=== PATIENT | female | born 1960 | race Caucasian/White ===

== ENCOUNTER → 2022-01-06 11:39 | Outpatient (BNVA) | payer OTHER, SELFPAY | PROVIDERS: PCP Internal Medicine; Referring Provider Internal Medicine; Visit Provider Student in an Organized Health Care Education/Training Program | DX: M17.0 Bilateral primary osteoarthritis of knee (principal); M79.7 Fibromyalgia; E66.01 Morbid (severe) obesity due to excess calories; Z68.42 Body mass index [BMI] 45.0-49.9, adult | CPT/HCPCS: 99212 ==

== ENCOUNTER 2022-01-30 | Outpatient (REF) | payer OTHER, SELFPAY ==
--- NOTE | ~2022-01-30 | XR_ITS ---
EXAMINATION: XR KNEE, BILATERAL AP STANDING XR KNEE, RIGHT XR KNEE, LEFT CLINICAL INFORMATION: Pain in unspecified knee. COMPARISON: None. TECHNIQUE: AP bilateral knee standing 1 view. 2 views each knee. FINDINGS: AP Bilateral Knee Standing: There is genu varus deformity of both knee joints slightly greater on the right. There is severe loss of medial compartment joint space both knees with periarticular spurring right knee. No bony erosive changes or loose body seen. No joint effusion. No fracture. Right Knee: There is mild suprapatellar joint effusion with minimal loss of patellofemoral compartment joint space with no bony erosive changes or loose body seen. Left Knee: There is moderate loss of patellofemoral compartment joint space with inferior patellar spurring. No abnormal suprapatellar joint effusion seen. No bony erosive changes. No visible acute fracture or dislocation. XR/XR knee RT 2V IMPRESSION: 1. Severe degenerative changes medial compartment both knees with periarticular spurring. No visible acute fracture or dislocation seen. 2. There is mild suprapatellar joint effusion right knee. 3. There is moderate loss of patellofemoral compartment joint space with inferior patellar spurring left knee. 4. There is genu varus deformity of both knee joints slightly greater on the right.
--- NOTE | ~2022-01-30 | XR_ITS ---
EXAMINATION: XR KNEE, BILATERAL AP STANDING XR KNEE, RIGHT XR KNEE, LEFT CLINICAL INFORMATION: Pain in unspecified knee. COMPARISON: None. TECHNIQUE: AP bilateral knee standing 1 view. 2 views each knee. FINDINGS: AP Bilateral Knee Standing: There is genu varus deformity of both knee joints slightly greater on the right. There is severe loss of medial compartment joint space both knees with periarticular spurring right knee. No bony erosive changes or loose body seen. No joint effusion. No fracture. Right Knee: There is mild suprapatellar joint effusion with minimal loss of patellofemoral compartment joint space with no bony erosive changes or loose body seen. Left Knee: There is moderate loss of patellofemoral compartment joint space with inferior patellar spurring. No abnormal suprapatellar joint effusion seen. No bony erosive changes. No visible acute fracture or dislocation. XR/XR knee standing BI IMPRESSION: 1. Severe degenerative changes medial compartment both knees with periarticular spurring. No visible acute fracture or dislocation seen. 2. There is mild suprapatellar joint effusion right knee. 3. There is moderate loss of patellofemoral compartment joint space with inferior patellar spurring left knee. 4. There is genu varus deformity of both knee joints slightly greater on the right.
--- NOTE | ~2022-01-30 | XR_ITS ---
EXAMINATION: XR KNEE, BILATERAL AP STANDING XR KNEE, RIGHT XR KNEE, LEFT CLINICAL INFORMATION: Pain in unspecified knee. COMPARISON: None. TECHNIQUE: AP bilateral knee standing 1 view. 2 views each knee. FINDINGS: AP Bilateral Knee Standing: There is genu varus deformity of both knee joints slightly greater on the right. There is severe loss of medial compartment joint space both knees with periarticular spurring right knee. No bony erosive changes or loose body seen. No joint effusion. No fracture. Right Knee: There is mild suprapatellar joint effusion with minimal loss of patellofemoral compartment joint space with no bony erosive changes or loose body seen. Left Knee: There is moderate loss of patellofemoral compartment joint space with inferior patellar spurring. No abnormal suprapatellar joint effusion seen. No bony erosive changes. No visible acute fracture or dislocation. XR/XR knee LT 2V IMPRESSION: 1. Severe degenerative changes medial compartment both knees with periarticular spurring. No visible acute fracture or dislocation seen. 2. There is mild suprapatellar joint effusion right knee. 3. There is moderate loss of patellofemoral compartment joint space with inferior patellar spurring left knee. 4. There is genu varus deformity of both knee joints slightly greater on the right.
== END 2022-01-30 00:01 | disposition home or self-care (01) ==
LOC: HO.HOSX
PROVIDERS: Visit Provider Orthopaedic Surgery
DX: M17.0 Bilateral primary osteoarthritis of knee (principal); E66.01 Morbid (severe) obesity due to excess calories; K74.60 Unspecified cirrhosis of liver; J45.909 Unspecified asthma, uncomplicated
CPT/HCPCS: 73560; 73565; 99202

== ENCOUNTER → 2022-02-13 10:02 | Outpatient (BNVA) | payer OTHER, SELFPAY | PROVIDERS: PCP Internal Medicine; Visit Provider Orthopaedic Surgery | DX: M17.0 Bilateral primary osteoarthritis of knee (principal); E66.01 Morbid (severe) obesity due to excess calories; K74.60 Unspecified cirrhosis of liver; J45.909 Unspecified asthma, uncomplicated; Z68.41 Body mass index [BMI] 40.0-44.9, adult | CPT/HCPCS: 99212 ==

== ENCOUNTER → 2022-03-16 09:51 | Outpatient (BNVA) | payer OTHER, SELFPAY | PROVIDERS: PCP Internal Medicine; Visit Provider Orthopaedic Surgery | DX: M17.0 Bilateral primary osteoarthritis of knee (principal); K74.60 Unspecified cirrhosis of liver; J45.909 Unspecified asthma, uncomplicated; E66.01 Morbid (severe) obesity due to excess calories; Z68.41 Body mass index [BMI] 40.0-44.9, adult | CPT/HCPCS: 99212 ==

== ENCOUNTER → 2022-03-20 09:51 | Outpatient (BNVA) | payer OTHER, SELFPAY | PROVIDERS: PCP Internal Medicine; Referring Provider Internal Medicine; Visit Provider Physician Assistant Surgical | DX: Z13.89 Encounter for screening for other disorder (principal) ==

== ENCOUNTER → 2022-04-11 13:15 | Outpatient (BNVA) | payer OTHER, SELFPAY | PROVIDERS: PCP Internal Medicine; Visit Provider Physician Assistant Surgical | DX: E66.01 Morbid (severe) obesity due to excess calories (principal); Z68.41 Body mass index [BMI] 40.0-44.9, adult | CPT/HCPCS: 99202 ==

== ENCOUNTER → 2022-05-25 09:52 | Outpatient (BNVA) | payer OTHER, SELFPAY | PROVIDERS: PCP Internal Medicine; Visit Provider Dietitian, Registered | DX: E66.01 Morbid (severe) obesity due to excess calories (principal); Z68.41 Body mass index [BMI] 40.0-44.9, adult | CPT/HCPCS: 97802 ==

== ENCOUNTER 2022-06-02 13:00 | Outpatient (RCR) | payer MEDICAID, OTHER, SELFPAY ==
[2022-03-02 12:14] VITALS: BP 130/62
--- NOTE | 2022-03-02 12:55 | MHC.PT.EP ---
[facility] [place] Office [place] Office [place] Office [address] Mariluz Black [address] [phone] F: [phone] F: [phone] F: [phone] F: [phone] Physical Therapy Plan of Care Date of Evaluation: Date of Surgery: N/A Diagnosis: bilateral osteoarthritis of knees (RC) Assessment: pt is a 61 y/o female presenting to physical therapy w/ referring diagnosis of bilateral osteoarthritis of knees. pt does present w/ perseveration and poor health literacy. Impairments include pain, decreased range of motion, decreased strength, impaired functional mobility, impaired postural awareness, and altered ambulation mechanics. pt is a good candidate for skilled PT due to age, potential remediation of impairments, typyical disease/condition progression and prognosis, comorbidities, and motivation. pt would benefit from skilled PT intervention to provide a tailored strengthening and stretching exercise program, functional training, gait training, postural re-training, neuromuscular re-education, modalities as needed for pain, equipment safety demonstration. Frequency and Duration: The patient will be seen 2x/wk for 3 wks Short Term Goals: pt will be I w/ HEP to promote self-management of condition. pt will improve B knee flexion by 10 degrees to promote ease in transfers. Nursing Home Goals: pt will improve B knee extension strength to at least 4/5 to promote ease in ambulation w/ LRAD. pt will report a statistically significant improvement in self-reported outcome measure, LEFI, to promote improved QOL. Treatment Plan: Modalities to reduce pain, spasms and effusion. Manual therapy to restore motion and function. Therapeutic exercise to improve strength and flexibility. Neuromuscular re-education for posture and balance. Therapeutic activities to return to functional activities of daily living. Electronically signed by: Latoya Martinez PT, DPT Please sign and return to therapist. Thank you for your referral.
--- NOTE | 2022-06-05 12:39 | MHC.PT.DC ---
[facility] [place] Office [place] Office [place] Office [address] Mariluz Black 140 [facility] [phone] F: [phone] F: [phone] F: [phone] F: [phone] Physical Therapy Discharge Report Diagnosis: bilateral osteoarthritis of knees (RC) Date of Surgery: N/A Date of Evaluation: 03/02/22 Date of Discharge: 06/05/22 Treatments to Date: 14 Cancellations to Date: 11 No Shows to Date: 0 Discharge Status: Recommend MD Follow-up Discharge Summary: The patient has attended a total of 14 visits with little to no change in her pain symptoms. She continues to have poor tolerance of weightbearing and uses a rollator for ambulation. She had fair-poor attendance and follow-through with recommendations from physical therapy. She is being discharged from physical therapy with the recommendation to continue with her home exercise program to continue to build strength and range of motion. She also was instructed by the orthopedic surgeon to lose weight before they will consider surgery. She is discharged at this time. Electronically signed by: Latoya Martinez PT, DPT Please sign and return to therapist. Thank you for your referral.
== END 2022-06-05 12:39 | disposition home or self-care (01) ==
LOC: HO.PT 13:00
PROVIDERS: PCP Internal Medicine; Visit Provider Orthopaedic Surgery
DX: M17.0 Bilateral primary osteoarthritis of knee (principal); R53.81 Other malaise
CPT/HCPCS: 97110; 97140; 97162; 97530

== ENCOUNTER → 2022-06-06 12:55 | Outpatient (BNVA) | payer OTHER, SELFPAY | PROVIDERS: PCP Internal Medicine; Visit Provider Physician Assistant ==

== ENCOUNTER → 2022-06-09 11:51 | Outpatient (BNVA) | payer MEDICAID, SELFPAY | PROVIDERS: PCP Internal Medicine; Visit Provider Physician Assistant Surgical | DX: E66.01 Morbid (severe) obesity due to excess calories (principal); Z68.41 Body mass index [BMI] 40.0-44.9, adult | CPT/HCPCS: 99212 ==

== ENCOUNTER → 2022-07-14 11:27 | Outpatient (BNVA) | payer MEDICAID, SELFPAY | PROVIDERS: PCP Internal Medicine; Referring Provider Internal Medicine; Visit Provider Physician Assistant Surgical | DX: E66.01 Morbid (severe) obesity due to excess calories (principal); K74.60 Unspecified cirrhosis of liver; J45.909 Unspecified asthma, uncomplicated; M17.0 Bilateral primary osteoarthritis of knee; M79.7 Fibromyalgia; Z68.41 Body mass index [BMI] 40.0-44.9, adult | CPT/HCPCS: 99212 ==

== ENCOUNTER 2022-08-18 09:02 | Outpatient (REF) | payer MEDICAID, SELFPAY ==
[2022-08-18 10:29] LABS: MANUAL DIFF FLAG NO
[2022-08-18 10:46] LABS: Basophils Absolute Auto 0.1 X10*3/uL (0.0-0.2); Basophils Percent Auto 0.8 % (0-2); Eosinophils Absolute Auto 0.1 X10*3/uL (0.0-0.4); Eosinophils Percent Auto 1.6 % (0-4); Hematocrit 47.4 % (37.0-47.0); Hemoglobin 15.3 g/dl (12.0-16.0); Imm Gran Abs Auto 0.02 X10*3/uL (0.00-0.03); Imm Gran Pct Auto 0.3 % (0.0-0.4); Lymphocytes Absolute Auto 2.8 X10*3/uL (1.2-4.9); Lymphocytes Percent Auto 36.9 % (20-40); Mean Corpuscular HGB Conc 32.3 g/dl (31.0-35.0); Mean Corpuscular Hemoglobin 29.7 pg (27.0-33.0); Mean Corpuscular Volume 91.9 fL (80.0-98.0); Mean Platelet Volume 12.2 fL (9.4-12.3); Monocytes Absolute Auto 0.7 X10*3/uL (0.1-1.2); Monocytes Percent Auto 9.3 % (2-11); Neutrophils Absolute Auto 3.8 x10*3/uL (2.0-8.3); Neutrophils Percent Auto 51.1 % (45-73); Platelet Count 152 X10*3/uL (160-400); Red Blood Count 5.16 X10*6/uL (4.20-5.50); Red Cell Distribution Width 13.6 % (11.0-16.0); White Blood Count 7.5 X10*3/uL (4.8-10.8)
[2022-08-18 10:57] LABS: Estimated Average Glucose 103 mg/dL; Hemoglobin A1c % 5.2 %
[2022-08-18 12:49] LABS: Ferritin 173 ng/mL (10-250); Insulin 31 uU/mL (2-29); TSH reflex Free T4 1.28 uIU/mL (0.32-4.0)
[2022-08-18 13:08] LABS: Alanine Aminotransferase 27 U/L (0-31); Albumin Level 3.8 g/dL (3.5-5.0); Alkaline Phosphatase 119 U/L (39-117); Anion Gap 12 (12-20); Aspartate Amino Transferase 26 U/L (5-31); Bilirubin Total 0.8 mg/dL (0.0-1.0); Blood Urea Nitrogen 9 mg/dL (9-16); C Reactive Protein 0.39 mg/dL (< or = 0.50); Calcium 9.2 mg/dL (8.4-10.2); Carbon Dioxide 25 mmol/L (22-29); Chloride 109 mmol/L (96-108); Cholesterol 209 mg/dL; Estimated Glomerular Filt Rate > 60; Glucose Random 92 mg/dL (60-115); HDL Cholesterol 67 mg/dL; Iron 152 mcg/dL (30-160); LDL Cholesterol Calculated 124 mg/dl; Percent Iron Saturation 43 % (15-50); Sodium 142 mmol/L (135-145); Total Iron Binding Capacity 351 mcg/dL (228-428); Total Protein 8.1 g/dL (6.5-8.0); Triglycerides 91 mg/dL; Unsaturated Iron Binding 199 ug/dL
[2022-08-18 13:10] LABS: Folate 14.3 ng/mL (> or = 4.0); Vitamin B12 351 pg/mL (200-900)
[2022-08-21 14:32] LABS: Calcium (PTHI) 9.2 mg/dL (8.6-10.4); PTHI 86 pg/mL (16-77)
[2022-08-22 12:33] LABS: Zinc 66 mcg/dL (60-130)
[2022-08-24 12:18] LABS: Vitamin B1 8 nmol/L (8-30)
[2022-08-24 15:54] LABS: Vitamin A 31 mcg/dL (38-98)
== END 2022-08-18 09:03 | disposition home or self-care (01) ==
LOC: HO.LAB 09:02
PROVIDERS: Visit Provider Physician Assistant Surgical
DX: E66.01 Morbid (severe) obesity due to excess calories (principal); M79.7 Fibromyalgia; K74.60 Unspecified cirrhosis of liver; J45.909 Unspecified asthma, uncomplicated; M17.0 Bilateral primary osteoarthritis of knee
CPT/HCPCS: 36415; 80053; 80061; 82306; 82607; 82728; 82746; 83036; 83525; 83540; 83970; 84425; 84443; 84590; 84630; 85025; 86140; 99212

== ENCOUNTER 2022-11-14 10:49 | Outpatient (AMB) | payer MEDICAID, SELFPAY ==
--- NOTE | 2022-11-14 10:52 | A.OFFVIS_ITS ---
Intake VS Expanded 11/14/22 10:56 Height 4 ft 11 in Weight 214 lb 3.2 oz BMI 43.3 BP 135/60 Blood Pressure Location Rt brachial Blood Pressure Position Sitting Respiratory Rate 16 Pulse 96 Pulse Source Pulse Oximeter Temp 98.0 F Temperature Source Temporal Artery Scan Pulse Oximetry 97 Oxygen Delivery Method Room Air Body Fat 92.8 Body Fat Percentage 43.4 Free Fat Mass 121.2 Muscle Mass 115.0 Visceral Mass 15.0 Water Mass 86.0 BMR 1,679 Intake Visit Reasons: MWL follow up Allergies gabapentin Allergy (Intermediate, Verified 11/14/22 10:55) Swelling Medication List - Last Reconciled 11/14/22 by ASAD Patino albuterol sulfate 90 mcg/actuation (Ventolin HFA) 2 puffs inhalation QID PRN aripiprazole 10 mg PO QAM carvedilol 3.125 mg PO BID cholecalciferol (vitamin D3) 25 mcg PO DAILY clonazepam 0.5 mg PO BID PRN duloxetine 60 mg PO QAM fluticasone propion-salmeterol 500-50 mcg/dose (Advair Diskus) 1 ea inhalation BID hydrochlorothiazide 12.5 mg PO DAILY montelukast 5 mg PO BID [shower chair As directed] tiotropium bromide 1.25 mcg/actuation (Spiriva Respimat) 2 puffs inhalation DAILY tolterodine 2 mg PO BID vitamin A palmitate 10,000 units PO DAILY [walker As directed] walker with seart attachment HPI HPI Comments History of Present Illness Details Pt presents in followup for MWL. Starting weight: 218 Weight at last visit: 209.8 Total weight change: -3.6 Pt reports a bad upper respiratory infection, did not adhere to meal plan for more than 2 weeks, had to be on prednisone, last dose about 3 weeks ago. She continues to smoke but reports she has cut down. Meal plan: 2 eggs or yogurt or cottage cheese 12-1pm Premier 2 scoops in 8oz unsweeten ed almond milk 3pm protein bar - celebrate or fitcrunch dinner meat, vegetables, salad doing well with fluid intake dealt with cravings this month, eliminated rice has goal of knee surgery, supposed to lose 25-30lbs before can have done Exercise: doing Sit and Be Fit videos- 3x week but not lately due to illness PT 2x/week? [facility] Medical History (Updated 01/30/22 @ 11:16 by Kumar Staley) Drug-seeking behavior Depression Anxiety Carpal tunnel syndrome Fibromyalgia Hepatitis C Sleep apnea Osteoarthritis Cirrhosis of liver Surgical History History of carpal tunnel release Abnormal colonoscopy Family History Mother Osteoporosis Father Rheumatoid arthritis Other History of lupus Social History Household Members: None Alcohol intake: current Alcohol intake frequency: does not drink Patient Tobacco Use Status: Current everyday Tobacco user Current occupational status: disabled Physical Exam Vital Signs: Last Vital Signs Temp 98.0 F 11/14/22 10:56 Pulse 96 11/14/22 10:56 Resp 16 11/14/22 10:56 BP 135/60 11/14/22 10:56 Pulse Ox 97 11/14/22 10:56 Oxygen Delivery Method Room Air 11/14/22 10:56 BMI result Body Mass Index 43.3 Assessment & Plan Assessment & Plan (1) Obesity, morbid, BMI 40.0-49.9: Code(s): E66.01 - Morbid (severe) obesity due to excess calories (2) Bilateral primary osteoarthritis of knee: Code(s): M17.0 - Bilateral primary osteoarthritis of knee (3) Fibromyalgia: Code(s): M79.7 - Fibromyalgia (4) Liver cirrhosis: Code(s): K74.60 - Unspecified cirrhosis of liver (5) Asthma: Code(s): J45.909 - Unspecified asthma, uncomplicated Plan Pt would like to transition to surgical weight loss. We discussed that she needs to adhere to the program strictly and quit smoking. We also discussed her history of liver cirrhosis and the possibility that depending on US results she may not qualify for safe surgery. She feels motivated to follow through with the program and follow it. This is a 62 yo female who will start our SWL program to prepare for bariatric surgery.? Blood work previously completed. H pylori , CXR, ECG, Abd US and UGI have been ordered. She is being scheduled for RD and BH initial consultations. She will start SWL classes and watch at least # 1 and # 2 before her next appointment. ? Adequate sleep of 7-8 hours per night discussed ?? Pt will purchase body composition analyzer scale (Kate sainz recommended) and check weight weekly. The best time to do this is first thing in the morning after going to the bathroom. 1. Nutritional counseling. 7-9am Premier Protein shake: 1 scoop in 8oz low fat unsweetened almond milk each 11am-1pm Protein bar (Celebrate or FitCrunch brand) 2-4pm Premier Protein shake: 1 scoop in 8oz low fat unsweetened almond milk each 5 or 6pm dinner: 7 forks protein, 7 forks salad/vegetables 7-9pm protein bar or [place] yogurt Meal to include lean meat (beef, fish, pork, turkey, chicken), cooked vegetables or a salad with olive oil and/or fruits (berries, pears, apples, kiwi). Avoid salt, breads, potatoes, rice, pasta, desserts.? Try to drink 64 oz of water daily and avoid soda and juices. ?2. Each shake would be drunk slowly, like coffee in a period of 2 hours. ?3. Cut each bar in 4 pieces and eat each piece in 30 min? to make each bar last 2 hours. ?4. I emphasized the importance of measuring accurately the food portion and measure it carefully when serving the food on the plate ?5. The meal portions include 7 full-size forks of meat and 7 full-size forks of salad. You always eat the meat portion but you can replace up to half of the forks of salad/vegetables with rice, potatoes or pasta, or a fruit? if you like. The less you do it the better weight loss will be. ?6. One full-size fork is what can be scooped on the fork without falling aside and not what can be bit with the fork. Use regular forks like those you find in a typical restaurant. ?7.? Please send me weight measurements as soon as possible and then once a week. Always include your diet and exercise plan. Alternatively come weekly at the office for weight checks and send me the measurements. ?8. Goal of 2000 calories burned or more weekly.? Tracking calories is essential. 9. Complete one Sit and Be Fit video DAILY. Alternatively start walking outside daily, tracking calories with a goal of 300 calories per day, daily. You can download the aranza Music Messenger (MM) which can track you time, distance and calories while walking outside.? You press start in the aranza when you start and then stop when you are finished.?? 10.? It is important to avoid and for at least 18 months postoperatively and it has been discussed at the information session 11. Goal is to lose at least 1.5-2lbs per week 12. Goal to lose 10% of your weight before surgery, which is about 21 lbs. Ultimate weight goal: 197 lbs before surgery Patient is morbidly obese and is not considered stable at this time. I spent a total of 45 minutes reviewing/updating records, examining the patient and counseling the patient on weight management as detailed above. Orders: Orders ECG 12 lead EKG Today E66.01 - Morbid (severe) obesity due to excess calories FL upper GI w air Today E66.01 - Morbid (severe) obesity due to excess calories H Pylori Breath Test Today E66.01 - Morbid (severe) obesity due to excess calories US abdomen comp w elastography Today E66.01 - Morbid (severe) obesity due to excess calories XR chest 2V Today E66.01 - Morbid (severe) obesity due to excess calories Referrals Nutrition/Dietitian Referral E66.01 - Morbid (severe) obesity due to excess calories Behavioral Health Referral E66.01 - Morbid (severe) obesity due to excess calories Coding Level of Care Code Est Pt Level 5 (32966) Diagnoses Obesity, morbid, BMI 40.0-49.9 E66.01 Bilateral primary osteoarthritis of knee M17.0 Fibromyalgia M79.7 Liver cirrhosis K74.60 Asthma J45.909
[2022-11-14 10:56] VITALS: BP 135/60; PULSE 96; RESP 16; TEMP 36.7; O2SAT 97; BMI 43.3
== END 2022-11-14 11:56 | disposition home or self-care (01) ==
PROVIDERS: PCP Internal Medicine; Visit Provider Physician Assistant Surgical
DX: E66.01 Morbid (severe) obesity due to excess calories (principal); Z68.41 Body mass index [BMI] 40.0-44.9, adult; K74.60 Unspecified cirrhosis of liver; J45.909 Unspecified asthma, uncomplicated
CPT/HCPCS: 99215

== ENCOUNTER → 2022-11-14 10:49 | Outpatient (BNVA) | payer MEDICAID, SELFPAY | PROVIDERS: PCP Internal Medicine; Visit Provider Physician Assistant Surgical | DX: E66.01 Morbid (severe) obesity due to excess calories (principal); K74.60 Unspecified cirrhosis of liver; M17.0 Bilateral primary osteoarthritis of knee; M79.7 Fibromyalgia; J45.909 Unspecified asthma, uncomplicated; Z68.41 Body mass index [BMI] 40.0-44.9, adult | CPT/HCPCS: 99212 ==

== ENCOUNTER 2022-12-13 09:37 | Outpatient (AMB) | payer MEDICAID, SELFPAY ==
--- NOTE | 2022-12-13 10:05 | MHC.AMNUTRGE ---
Intake VS Expanded 12/13/22 10:38 Height 4 ft 11 in Weight 211 lb 9.6 oz BMI 42.7 Body Fat % 44.0 Body Fat Mass 93.0 Fat Free Mass 118.4 Visceral Fat Rating 15.0 Body Water % 39.7 Body Water Mass 84.0 Muscle Mass/Score 112.4 Basal Metabolic Rate/Score 1,644 Intake Visit Reasons: (OV) F/U SWL Motion Picture Photographer Required: No Allergies gabapentin Allergy (Intermediate, Verified 11/14/22 10:55) Swelling HPI Nutrition Presentation Details Medical weight loss start date 04/11/2022 but NOW SWL new patient weight 218 end of MWL program weight 209# returned for SWL 214 current weight 211# Reason for consult elevated BMI Diet Assmnt Details 8:30-9am Premier powder 1 scoop with almond milk shake and a egg (occasionally) 12pm shake the same way protein bar - Zone macros dinner: protein and veg, but doesn't measure Snacks on fruit apple, grapes is a little vague about what she is doing Exercise: walking around the house, ParasitX[employer] videos, stretching Dietary counseling reduction Diagnosis Nutrition problem #1 overweight/obesity As related to (etiology) #1 excess energy intake and physical inactivity As evidenced by (sign/symptom) #1 high BMI Monitoring/Goals Nutrition problem monitoring total energy intake, level of knowledge/skill, total PRO intake, total CHO intake, weight and oral fluids Outcome progress not met Learning/Education Readiness to learn good Stages of change action Educational materials provided Yes Most Recent Diabetes Results: Cholesterol 209 mg/dL 08/18/22 HDL Cholesterol 67 mg/dL 08/18/22 Triglycerides 91 mg/dL 08/18/22 Creatinine 0.70 mg/dL (0.5-1.4) 08/18/22 Blood Urea Nitrogen 9 mg/dL (9-16) 08/18/22 Sodium 142 mmol/L (135-145) 08/18/22 Potassium 4.0 mmol/L (3.3-5.1) 08/18/22 Chloride 109 mmol/L (96-108) H 08/18/22 Carbon Dioxide 25 mmol/L (22-29) 08/18/22 Calcium 9.2 mg/dL (8.4-10.2) 08/18/22 AST 26 U/L (5-31) 08/18/22 ALT 27 U/L (0-31) 08/18/22 Total Protein 8.1 g/dL (6.5-8.0) H 08/18/22 Albumin 3.8 g/dL (3.5-5.0) 08/18/22 [facility] Medical History (Updated 01/30/22 @ 11:16 by Kumar Staley) Drug-seeking behavior Depression Anxiety Carpal tunnel syndrome Fibromyalgia Hepatitis C Sleep apnea Osteoarthritis Cirrhosis of liver Surgical History History of carpal tunnel release Abnormal colonoscopy Family History Mother Osteoporosis Father Rheumatoid arthritis Other History of lupus Social History Household Members: None Alcohol intake: current Alcohol intake frequency: does not drink Patient Tobacco Use Status: Current everyday Tobacco user Current occupational status: disabled Assessment & Plan Assessment & Plan (1) Obesity, morbid, BMI 40.0-49.9: Code(s): E66.01 - Morbid (severe) obesity due to excess calories Patient Instructions: continue plan. Nutrition education provided. Showed patient how to access classes. Patient will follow-up with me when completed Coding Level of Care Code Nutr Indiv Subseq (16391) Diagnoses Obesity, morbid, BMI 40.0-49.9 E66.01 Time Spent (min) 30
[2022-12-13 10:38] VITALS: BMI 42.7
== END 2022-12-13 10:48 | disposition home or self-care (01) ==
PROVIDERS: PCP Internal Medicine; Visit Provider Dietitian, Registered
DX: E66.01 Morbid (severe) obesity due to excess calories (principal)

== ENCOUNTER → 2022-12-13 09:37 | Outpatient (BNVA) | payer MEDICAID, SELFPAY | PROVIDERS: PCP Internal Medicine; Visit Provider Dietitian, Registered | DX: E66.01 Morbid (severe) obesity due to excess calories (principal); Z68.41 Body mass index [BMI] 40.0-44.9, adult | CPT/HCPCS: 97803 ==

== ENCOUNTER 2023-01-01 10:10 | Outpatient (AMB) | payer MEDICAID, SELFPAY ==
--- NOTE | 2023-01-01 10:19 | MHC.WMTHER ---
Intake Intake Visit Reasons: (OV) BH Intake Allergies gabapentin Allergy (Intermediate, Verified 11/14/22 10:55) Swelling [facility] Medical History (Updated 01/01/23 @ 10:51 by Nguyen Heart) Drug-seeking behavior Depression Anxiety Carpal tunnel syndrome Fibromyalgia Hepatitis C Sleep apnea Osteoarthritis Cirrhosis of liver Surgical History History of carpal tunnel release Abnormal colonoscopy Family History Mother Osteoporosis Father Rheumatoid arthritis Other History of lupus Social History Household Members: None Alcohol intake: current Alcohol intake frequency: does not drink Patient Tobacco Use Status: Current everyday Tobacco user Current occupational status: disabled Behavioral Health Assessment Weight Management Therapy Therapy Notes Details Pt is looking to have weight loss surgery to help improve her health and quality of life. Pt sees a psychiatrist and therapist from [address] [place] [address]. She has appointments over the phone however they are retiring soon. She reported that she has a history of depression and anxiety. She denied any history of problems with drugs or alcohol. and no history of inpatient hospitalizations. Presenting Concerns Referral Source provider Reason for referral weight loss surgery evaluation Precipitating Event obesity Living Situation Current Living Situation Rent At risk of losing current housing? No Satisfied with current living situation? Yes Comments Patient lives alone in an apartment. Food/Weight/Diet Expectations of change weight loss and maintenance History/Relationship with food Patient stated that she struggles with eating too much sweets, sugar, baked goods, and also bigger portions than she should. History/Relationship with weight She reported that she gained weight when she moved her from [place] five years ago. Social History Family history and relationship Pt reported that she was born in [place] and moved to [place] at age 3 raised by her parents and 3 sisters. She moved here 5 years ago and has her daughter in this area (3 total) and other family members. She stated that her mother just from Alzheimer's. Her father ten years ago. 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 none known Education Preferred learning style Auditory, Verbal, Written, Learn by doing and Visual Currently enrolled in educational program? No Interested in further educational program? No Employment Employment Status Other Meaningful activities spending time with family Financial Situation Describe current financial situation Occasional struggle Financial assistance? None Service Service? No Mental Health and Addiction Treatment Current/Past substance abuse? No Current/Past addictive behavior concerns? No Medical and Physical Health Summary Physical exam in the last year? Yes Pain Screening Pain in the last few months? Yes Medications Is the patient compliant with medications? Yes Does the patient have Ghohs Guardian in place? Not applicable Does the patient use complimentary health approaches? No Trauma/Abuse History History of trauma? Yes Questionnaires PHQ-9 Over the last 2 weeks, how often have you been bothered by any of the following problems? 1. Little interest or pleasure in doing things: several days 2. Feeling down, depressed, or hopeless: several days 3. Trouble falling or staying asleep, or sleeping too much: not at all 4. Feeling tired or having little energy: several days 5. Poor appetite or overeating: several days 6. Feeling bad about yourself - or that you are a failure or have let yourself or your family down: not at all 7. Trouble concentrating on things, such as reading the newspaper or watching television: several days 8. Moving or speaking so slowly that other people could have noticed. Or the opposite - being so fidgety or restless that you have been moving around a lot more than usual: several days 9. Thoughts that you would be better off or of hurting yourself in some way: not at all Total score: 6 Source: Developed by Drs. Cristian Ellis, Zulma Dobbs, Kevin Gee and colleagues, with an educational rafal from [employer]. Binge Eating Scale Group 1 A. I don't feel self-conscious about my wt. or body size when I'm with others. B. I feel concerned about how I look to others, but it normally does not make me fell disappointed with myself C. I do get self-conscious about my appearance and wt. which makes me feel disappointed in myself. D. I feel very self-conscious about my wt. and frequently I feel intense shame and disgust for myself. I try to avoid social contacts because of my self-consciousness. Response Group 1: C Group 2 A. I don't have any difficulty eating slowly in the proper manner. B. Although I seem to gobble down foods, I don't end up feeling stuffed because of eating to much. C. At times, I tend to eat quickly and then, I feel uncomfortably full afterwards. D. I have the habit of bolting down my food, without really chewing it. When this happens I usually feel uncomfortably stuffed because I've eaten to much. Response Group 2: A Group 3 A. I feel capable to control my eating urges when I want to. B. I feel like I have failed to control my eating more than the average person. C. I feel utterly helpless when it comes to feeling in control of my eating urges. D. Because I feel so helpless about controlling my eating I have become very desperate about trying to get control. Response Group 3: B Group 4 A. I don't have the habit of eating when I'm bored. B. I sometimes eat when I'm bored, but often I'm able to get busy and get my mind off food. C. I have a regular habit of eating when I'm bored, but occasionally, I can use some other activity to get my mind off eating. D. I have a strong habit of eating when I'm bored. Nothing seems to help me breath the habit. Response Group 4: C Group 5 A. I'm usually physically hungry when I eat something. B. Occasionally, I eat something on impulse even though I really am not hungry. C. I have the regular habit of eating foods, that I might not really enjoy, to satisfy a hungry feeling even though physically, I don't need the food. D. Although I'm not physically hungry, I get a hungry feeling in my mouth that only seems to be satisfied when I eat a food, like sandwich, that fills my mouth. Sometimes, when I eat the food to satisfy my mouth hunger, I then spit the food out so I won't gain weight. Response Group 5: A Group 6 A. I don't feel any guilt or self-hate after I overeat. B. After I overeat, occasionally I feel guilt or self-hate. C. Almost all the time I experience strong guilt or self-hate after I overeat. Response Group 6: B Group 7 A. I don't lose total control of my eating when dieting even after periods when I overeat. B. Sometimes when I eat a forbidden food on a diet, I feel like I blew it and eat even more. C. Frequently, I have the habit of saying to myself, I've blown it now, why not go all the way, when I overeat on a diet. When that happens I eat more. D. I have a regular habit of starting a strict diets for myself but I break the diets by going on an eating binge. My life seems to be either a feast or famine. Response Group 7: A Group 8 A. I rarely eat so much food that I feel uncomfortably stuffed afterwards. B. Usually about once a month, I each such a quantity of food, I end up feeling very stuffed. C. I have regular periods during the month when I eat large amounts of food, either at mealtime or at snacks. D. I eat so much food that I regularly feel quite uncomfortable after eating and sometimes a bit nauseous. Response Group 8: C Group 9 A. My level of calorie intake does not go up very high or go down very low on a regular basis. B. Sometimes after I overeat, I will try to reduce my caloric intake to almost nothing to compensate for the excess calories I've eaten. C. I have a regular habit of overeating during the night. It seems that my routine is not to be hungry in the morning but overeat in the evening. D. In my adult years, I have had week-long periods where I practically starve myself. This follows periods when I overeat. It seems I live a life of either feast or famine. Response Group 9: C Group 10 A. I usually am able to stop eating when I want to. I know when enough is enough. B. Every so often, I experience a compulsion to eat which I can't seem to control. C. Frequently, I experience strong urges to eat which I seem unable to control, but at other times I can control my eating urges. D. I feel incapable of controlling urges to eat. I have a fear of not being able to stop eating voluntarily. Response Group 10: C Group 11 A. I don't have any problem stopping eating when I feel full. B. I usually can stop eating when I feel full but occasionally overeat leaving me feeling uncomfortably stuffed. C. I have a problem stopping eating once I start and usually I feel uncomfortably stuffed after I eat a meal. D. Because I have a problem not being able to stop eating when I want, I sometimes have to induce vomiting to relieve my stuffed feeling. Response Group 11: B Group 12 A. I seem to eat just as much when I'm with others, Family social gatherings as when I'm by myself. B. Sometimes, when I'm with other persons, I don't eat as much as I want to eat because I'm self-conscious about my eating. C. Frequently, I eat only a small amount of food when others are present, because I'm very embarrassed about my eating. D. I feel so ashamed about overeating that I pick times to overeat when I know no one will see me. I feel like a closet eater. Response Group 12: A Group 13 A. I eat three meals a day with only an occasional between meal snack. B. I eat 3 meals a day, but I also normally snack between meals. C. When I am snacking heavily, I get in the habit of skipping regular meals. D. There are regular periods when I seem to be continually eating, with no planned meals. Response Group 13: C Group 14 A. I don't think much about trying to control unwanted eating urges. B. At least some of the time, I feel my thoughts are pre-occupied with trying to control my eating urges. C. I feel that frequently I spend much time thinking about how much I ate or about trying not to eat anymore. D. It seems to me that most of my waking hours are pre-occupied by thoughts about eating or not eating. I feel like I'm constantly struggling not to eat. Response Group 14: C Group 15 A. I don't think about food a great deal. B. I have strong craving for food but they last only for brief periods of time. C. I have days when I can't seem to think about anything else but food. D. Most of my days seem to be pre-occupied with thoughts about food. I feel like I live to eat. Response Group 15: C Group 16 A. I usually know whether or not I'm physically hungry. I take the right portion of food to satisfy me. B. Occasionally, I feel uncertain about knowing whether or not I'm physically hungry. A these times it's hard to know how much food I should take to satisfy me. C. Even though I might know how many calories I should eat, I don't have any idea what is a normal amount of food for me. Response Group 16: B Binge Eating Score: 20 Score less than 17 Minimal Risk Score between 18-26 Moderate Risk Score between 27-46 High Risk Assessment & Plan Assessment & Plan (1) Posttraumatic stress disorder: Code(s): F43.10 - Post-traumatic stress disorder, unspecified (2) Asthma: Code(s): J45.909 - Unspecified asthma, uncomplicated (3) Obesity, morbid, BMI 40.0-49.9: Code(s): E66.01 - Morbid (severe) obesity due to excess calories Plan Pt has limited supports and day structure. She will be seen again and needs new referrals for outpatient mental health treatment. Coding Level of Care Code Cristal Hollins ([id number]) Diagnoses Posttraumatic stress disorder F43.10 Asthma J45.909 Obesity, morbid, BMI 40.0-49.9 E66.01 Time Spent (min) 50
== END 2023-01-01 11:14 | disposition home or self-care (01) ==
PROVIDERS: PCP Internal Medicine; Visit Provider Counselor Mental Health
DX: F43.10 Post-traumatic stress disorder, unspecified (principal); J45.909 Unspecified asthma, uncomplicated; E66.01 Morbid (severe) obesity due to excess calories
CPT/HCPCS: 90791

== ENCOUNTER → 2023-01-01 10:10 | Outpatient (BNVA) | payer MEDICAID, SELFPAY | PROVIDERS: PCP Internal Medicine; Visit Provider Counselor Mental Health | DX: F43.10 Post-traumatic stress disorder, unspecified (principal); E66.01 Morbid (severe) obesity due to excess calories; J45.909 Unspecified asthma, uncomplicated | CPT/HCPCS: 90791 ==

== ENCOUNTER 2023-01-23 10:18 | Outpatient (AMB) | payer MEDICAID, SELFPAY ==
--- NOTE | 2023-01-23 10:33 | A.OFFVIS_ITS ---
Intake VS Expanded 01/23/23 10:48 BP 127/55 L Blood Pressure Location Rt brachial Blood Pressure Position Sitting Pulse 94 Pulse Source Pulse Oximeter Temp 97.5 F Temperature Source Temporal Artery Scan Pulse Oximetry 98 Oxygen Delivery Method Room Air Height 4 ft 11 in Weight 213 lb 12.8 oz BMI 43.2 Body Fat % 43.0 Body Fat Mass 92.0 Fat Free Mass 121.6 Visceral Fat Rating 15.0 Body Water % 40.4 Body Water Mass 86.2 Muscle Mass/Score 115.6 Basal Metabolic Rate/Score 1,683 Intake Visit Reasons: (OV) F/U SWL Allergies gabapentin Allergy (Intermediate, Verified 11/14/22 10:55) Swelling Medication List - Last Reconciled 01/23/23 by ASAD Patino albuterol sulfate 90 mcg/actuation (Ventolin HFA) 2 puffs inhalation QID PRN aripiprazole 10 mg PO QAM carvedilol 3.125 mg PO BID cholecalciferol (vitamin D3) 25 mcg PO DAILY clonazepam 0.5 mg PO BID PRN duloxetine 60 mg PO QAM fluticasone propion-salmeterol 500-50 mcg/dose (Advair Diskus) 1 ea inhalation BID hydrochlorothiazide 12.5 mg PO DAILY montelukast 5 mg PO BID [shower chair As directed] tiotropium bromide 1.25 mcg/actuation (Spiriva Respimat) 2 puffs inhalation DAILY tolterodine 2 mg PO BID vitamin A palmitate 10,000 units PO DAILY [walker As directed] walker with seart attachment HPI HPI Comments History of Present Illness Details The patient is a 62 year old female who returns to the clinic for pre- operative surgical weight loss management.? They were last seen in the office on 11/14/2022, recorded weight at that time was 214.2 pounds.? Today's weight is 213.8 pounds and BMI is 43.2.? There has been a weight loss of 4.6 pounds since initiating the surgical weight loss program on 04/11/2022 with a total body weight loss of 2.1 %. Pre op work up completed as follows: SWL classes:? 06/03 BH appts: needs f/u, none scheduled ?? RD appts: needs f/u once classes completed Labs: 08/18- high PTH, low vit A/D, alk phos/insulin high H. pylori: not done CXR: not done EKG: not done ABD U/S: 02/16 UGI: 01/30 The patient reports a lot of pain due to fibromyalgia. I messed up a little at Thanksgiving regarding the meal plan. Eating fruits- apples, pears, blueberries. Had to be restarted on steroids again for breathing. Ran out of bars, continues to smoke but reports has cut down- 4 cigarettes/day. Current meal plan includes: 7-9am Premier Protein shake: 1 scoop in 8oz low fat unsweetened almond milk each 11am-1pm Protein bar (Celebrate or [employer] unch brand) 2-4pm Premier Protein shake: 1 scoop in 8oz low fat unsweetened almond milk each 5 or 6pm dinner: 7 forks protein, 7 fork s salad/vegetables 7-9pm protein bar Current exercise plan includes: Sit and Be Fit 3x/week, trying to walk- 1 block, has not been going to PT regularly [facility] Medical History (Updated 01/01/23 @ 10:51 by Nguyen Heart) Drug-seeking behavior Depression Anxiety Carpal tunnel syndrome Fibromyalgia Hepatitis C Sleep apnea Osteoarthritis Cirrhosis of liver Surgical History History of carpal tunnel release Abnormal colonoscopy Family History Mother Osteoporosis Father Rheumatoid arthritis Other History of lupus Household Members: None Alcohol intake: current Alcohol intake frequency: does not drink Patient Tobacco Use Status: Current everyday Tobacco user Current occupational status: disabled Physical Exam Vital Signs: Last Vital Signs Temp 97.5 F 01/23/23 10:48 Pulse 94 01/23/23 10:48 BP 127/55 L 01/23/23 10:48 Pulse Ox 98 01/23/23 10:48 Oxygen Delivery Method Room Air 01/23/23 10:48 BMI result Body Mass Index 43.2 Assessment & Plan Assessment & Plan (1) Obesity, morbid, BMI 40.0-49.9: Code(s): E66.01 - Morbid (severe) obesity due to excess calories (2) Liver cirrhosis: Code(s): K74.60 - Unspecified cirrhosis of liver (3) Bilateral primary osteoarthritis of knee: Code(s): M17.0 - Bilateral primary osteoarthritis of knee (4) Fibromyalgia: Code(s): M79.7 - Fibromyalgia (5) Asthma: Code(s): J45.909 - Unspecified asthma, uncomplicated Plan Discussed consistency in the plan, adhering to set times and eating/drinking the items that are on the plan. Needs to increase exercise, do Sit and be Fit daily. Also needs to quit smoking. H. pylori at next visit. Needs follow up with BH, will schedule today. Needs follow up with RD once all classes are completed, reminded pt to finish watching. RTC in early Feb after radiology studies completed. Patient is morbidly obese and is not considered stable at this time. I spent a total of 30 minutes reviewing/updating records, examining the patient and counseling the patient on weight management as detailed above. Coding Level of Care Code Est Pt Level 4 (92514) Diagnoses Obesity, morbid, BMI 40.0-49.9 E66.01 Liver cirrhosis K74.60 Bilateral primary osteoarthritis of knee M17.0 Fibromyalgia M79.7 Asthma J45.909
[2023-01-23 10:48] VITALS: BP 127/55; PULSE 94; TEMP 36.4; O2SAT 98; BMI 43.2
== END 2023-01-23 11:14 | disposition home or self-care (01) ==
PROVIDERS: PCP Internal Medicine; Visit Provider Physician Assistant Surgical
DX: E66.01 Morbid (severe) obesity due to excess calories (principal); Z68.41 Body mass index [BMI] 40.0-44.9, adult; K74.60 Unspecified cirrhosis of liver; J45.909 Unspecified asthma, uncomplicated
CPT/HCPCS: 99214

== ENCOUNTER → 2023-01-23 10:18 | Outpatient (BNVA) | payer MEDICAID, SELFPAY | PROVIDERS: PCP Internal Medicine; Visit Provider Physician Assistant Surgical | DX: E66.01 Morbid (severe) obesity due to excess calories (principal); K74.60 Unspecified cirrhosis of liver; M17.0 Bilateral primary osteoarthritis of knee; M79.7 Fibromyalgia; J45.909 Unspecified asthma, uncomplicated; Z68.41 Body mass index [BMI] 40.0-44.9, adult | CPT/HCPCS: 99212 ==

== ENCOUNTER 2023-02-07 10:32 | Outpatient (AMB) | payer OTHER, SELFPAY ==
--- NOTE | 2023-02-07 16:15 | MHC.WMTHER ---
Intake Intake Visit Reasons: (OV) BH F/U Allergies gabapentin Allergy (Intermediate, Verified 11/14/22 10:55) Swelling [facility] Medical History (Updated 01/01/23 @ 10:51 by Nguyen Heart) Drug-seeking behavior Depression Anxiety Carpal tunnel syndrome Fibromyalgia Hepatitis C Sleep apnea Osteoarthritis Cirrhosis of liver Surgical History History of carpal tunnel release Abnormal colonoscopy Family History Mother Osteoporosis Father Rheumatoid arthritis Other History of lupus Social History Household Members: None Alcohol intake: current Alcohol intake frequency: does not drink Patient Tobacco Use Status: Current everyday Tobacco user Current occupational status: disabled Behavioral Health Assessment Weight Management Therapy Therapy Notes Details Today pt reported struggling with pain, wished her appt was virtual. Stated that she is doing fine otherwise, was agitated at times throughout session. Together, we made referral to [facility] in [place]. Pt is looking to have weight loss surgery to help improve her health and quality of life. Pt was seeing a psychiatrist and therapist from [address] [place] [address]. She has appointments over the phone however they are retiring soon. She reported that she has a history of depression and anxiety. She denied any history of problems with drugs or alcohol. and no history of inpatient hospitalizations. Presenting Concerns Referral Source provider Reason for referral weight loss surgery evaluation Precipitating Event obesity Living Situation Current Living Situation Rent At risk of losing current housing? No Satisfied with current living situation? Yes Comments Patient lives alone in an apartment. Food/Weight/Diet Expectations of change weight loss and maintenance History/Relationship with food Patient stated that she struggles with eating too much sweets, sugar, baked goods, and also bigger portions than she should. History/Relationship with weight She reported that she gained weight when she moved her from [place] five years ago. Social History Family history and relationship Pt reported that she was born in [place] and moved to [place] at age 3 raised by her parents and 3 sisters. She moved here 5 years ago and has her daughter in this area (3 total) and other family members. She stated that her mother just from Alzheimer's. Her father ten years ago. 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 none known Education Preferred learning style Auditory, Verbal, Written, Learn by doing and Visual Currently enrolled in educational program? No Interested in further educational program? No Employment Employment Status Other Meaningful activities spending time with family Financial Situation Describe current financial situation Occasional struggle Financial assistance? None Service Service? No Mental Health and Addiction Treatment Current/Past substance abuse? No Current/Past addictive behavior concerns? No Medical and Physical Health Summary Physical exam in the last year? Yes Pain Screening Pain in the last few months? Yes Medications Is the patient compliant with medications? Yes Does the patient have Ghosh Guardian in place? Not applicable Does the patient use complimentary health approaches? No Trauma/Abuse History History of trauma? Yes Assessment & Plan Assessment & Plan (1) Posttraumatic stress disorder: Code(s): F43.10 - Post-traumatic stress disorder, unspecified (2) Asthma: Code(s): J45.909 - Unspecified asthma, uncomplicated (3) Obesity, morbid, BMI 40.0-49.9: Code(s): E66.01 - Morbid (severe) obesity due to excess calories Plan Pt has limited supports and day structure. Referral was made to [facility]. Her current providers have retired and she has 6 months worth of medications. Pt is looking to have weight loss surgery so that she can get a knee replacement. It is unclear how much she is adhering to her treatment plan. She will be seen again. Coding Level of Care Code Psytx 45 mins (42092) Diagnoses Posttraumatic stress disorder F43.10 Asthma J45.909 Obesity, morbid, BMI 40.0-49.9 E66.01 Time Spent (min) 45
== END 2023-02-07 15:02 | disposition home or self-care (01) ==
PROVIDERS: PCP Internal Medicine; Visit Provider Counselor Mental Health
DX: F43.10 Post-traumatic stress disorder, unspecified (principal); J45.909 Unspecified asthma, uncomplicated; E66.01 Morbid (severe) obesity due to excess calories
CPT/HCPCS: 90834

== ENCOUNTER → 2023-02-07 10:32 | Outpatient (BNVA) | payer MEDICAID, SELFPAY | PROVIDERS: PCP Internal Medicine; Visit Provider Counselor Mental Health | DX: E66.01 Morbid (severe) obesity due to excess calories (principal); J45.909 Unspecified asthma, uncomplicated; F43.10 Post-traumatic stress disorder, unspecified | CPT/HCPCS: 90834 ==

== ENCOUNTER 2023-02-16 08:14 | Outpatient (REF) | payer MEDICAID, SELFPAY ==
--- NOTE | ~2023-02-16 | XR_ITS ---
EXAMINATION: XR CHEST CLINICAL INFORMATION: Morbid obesity with cough x3 weeks COMPARISON: None available. TECHNIQUE: 2 views of the chest were obtained. FINDINGS: No significant abnormality is noted involving the heart, lungs, mediastinum, bony thorax or soft tissues. XR/XR chest 2V IMPRESSION: Unremarkable examination.
--- NOTE | ~2023-02-16 | US_ITS ---
EXAMINATION: US COMPLETE ABDOMEN WITH LIVER ELASTOGRAPHY CLINICAL INFORMATION: Obesity. COMPARISON: None available. TECHNIQUE: Real-time imaging of the abdominal viscera. Noninvasive ultrasound liver fibrosis assessment is performed using Tay ElastPQ point quantification shear wave elastography (2D-SWE) with a C5-2 MHz transducer. Multiple elastography samples are obtained. FINDINGS: PANCREAS: Normal. The visualized pancreatic head and body are normal in appearance. The remainder of the pancreas is obscured from visualization by the overlying bowel gas. ABDOMINAL AORTA: The proximal proximal segment is normal in caliber. The mid and distal segments are obscured by overlapping bowel gas. INFERIOR VENA CAVA: Visualized portions are normal. LIVER: The liver demonstrates normal size, a lobulated contour and increased echogenicity. No focal lesion or intrahepatic biliary duct dilatation. The right lobe measures 15.8 cm in length. The left lobe measures 10.3 cm in length. Portal flow is towards the liver (hepatopetal). Shear wave liver elastography median stiffness is 1.75 m/s (reference: normal median stiffness is 1.3 m/s or less). IQR/median stiffness to assess sampling precision is 0.48 (reference: good quality data set is IQR/median stiffness of 0.15 or less). GALLBLADDER: Normal. The gallbladder is physiologically distended without evidence of stones, sludge, polyps, wall thickening or pericholecystic fluid. COMMON BILE DUCT: Normal in caliber measuring 0.2 cm in diameter. RIGHT KIDNEY: Normal. No hydronephrosis. No renal calculi or focal parenchymal lesions. The kidney measures 11.0 cm in maximum dimension. LEFT KIDNEY: Normal. No hydronephrosis. No renal calculi or focal parenchymal lesions. The kidney measures 11.3 cm in maximum dimension. SPLEEN: Normal. The spleen measures 9.0 cm in maximum dimension. FREE FLUID: None. US/US abdomen comp w elastography IMPRESSION: 1. There is generalized increase in hepatic echotexture, consistent with fatty infiltration or hepatocellular disease. Please correlate clinically. No focal hepatic mass or intrahepatic biliary dilatation is seen. 2. Liver elastography: Although measurements are suggestive of compensated advanced chronic liver disease, there is statistical variability of the sampling which decreases accuracy. 3. Technically limited examination, in particular of the pancreas and abdominal great vessels. REFERENCE: Society of Radiologists in Ultrasound Liver Stiffness Thresholds (2020): LIVER STIFFNESS THRESHOLDS: *Liver Stiffness equal or less than 1.3 m/s: High probability of being normal. *Liver Stiffness less than 1.7 m/s: In the absence of other known clinical signs, rules out compensated advanced chronic liver disease. *Liver Stiffness 1.7-2.1 m/s: Suggestive of compensated advanced chronic liver disease but need further test for confirmation. *Liver Stiffness over 2.1 m/s: Rules in compensated advanced chronic liver disease. *Liver Stiffness over 2.4 m/s: Suggestive of clinically significant portal hypertension. QUALITY OF DATA SET: *IQR/Median value equal or less than 0.15 implies a quality data set. *IQR/Median value over 0.15 implies a poor quality data set. SIGNIFICANT CHANGE FROM PRIOR EXAM: Significant change if liver stiffness measurement is 10% or greater from prior exam. OTHER CONSIDERATIONS: The stage of liver fibrosis may be overestimated in the setting of acute hepatitis, liver inflammation, elevated liver function tests, hepatic vascular congestion, obstructive cholestasis, non-fasting state, and infiltrative diseases such as amyloidosis and lymphoma. In some patients with NAFLD, the liver stiffness thresholds for compensated advanced chronic liver disease may be lower. In causes other than viral hepatitis and NAFLD, liver stiffness thresholds are not well established.
== END 2023-02-16 08:15 | disposition home or self-care (01) ==
LOC: HO.US 08:14
PROVIDERS: PCP Internal Medicine; Visit Provider Physician Assistant Surgical
DX: E66.01 Morbid (severe) obesity due to excess calories (principal)
CPT/HCPCS: 71046; 76705; 76981

== ENCOUNTER 2023-04-10 10:37 | Outpatient (AMB) | payer MEDICAID, SELFPAY ==
--- NOTE | 2023-04-10 10:33 | MHC.OFFVISWM ---
Intake VS Expanded 04/10/23 10:42 Height 4 ft 11 in Weight 217 lb BMI 43.8 Intake Visit Reasons: (TV) F/U SWL Allergies gabapentin Allergy (Intermediate, Verified 11/14/22 10:55) Swelling Medication List - Last Reconciled 04/10/23 by ASAD Patino albuterol sulfate 90 mcg/actuation (Ventolin HFA) 2 puffs inhalation QID PRN aripiprazole 10 mg PO QAM carvedilol 3.125 mg PO BID cholecalciferol (vitamin D3) 25 mcg PO DAILY clonazepam 0.5 mg PO BID PRN duloxetine 60 mg PO QAM fluticasone propion-salmeterol 500-50 mcg/dose (Advair Diskus) 1 ea inhalation BID hydrochlorothiazide 12.5 mg PO DAILY montelukast 5 mg PO BID [shower chair As directed] tiotropium bromide 1.25 mcg/actuation (Spiriva Respimat) 2 puffs inhalation DAILY tolterodine 2 mg PO BID vitamin A palmitate 10,000 units PO DAILY [walker As directed] ghassan with seart attachment HPI HPI Comments History of Present Illness Details 62 year old female who returns to the clinic for pre-operative surgical weight loss management.? They were last seen in the office on 01/23/2023, recorded weight at that time was 214.2 pounds.? Today's weight is 217 pounds and BMI is 43.8.?Starting weight 213.8lbs. There has been a weight loss of pounds since initiating the surgical weight loss program on 04/11/2022 with a total body weight loss of %. Pre op work up completed as follows: SWL classes:? 06/03 appts: needs f/u, 04/25 appts: needs f/u once classes completed Labs: 08/18- high PTH, low vit A/D, alk phos/insulin high H. pylori: not done CXR: 02/16- No significant abnormality is noted involving the heart, lungs, mediastinum, bony thorax or soft tissues. EKG: not done ABD U/S: 02/16- generalized increase in hepatic echotexture, consistent with fatty infiltration or hepatocellular disease. Please correlate clinically. No focal hepatic mass or intrahepatic biliary dilatation is seen. Liver elastography: Although measurements are suggestive of compensated advanced chronic liver disease, there is statistical variability of the sampling which decreases accuracy. Technically limited examination, in particular of the pancreas and abdominal great vessels. UGI: scheduled 05/02 Pt reports I slipped a lot because she just moved. Her mother also and she had to travel to [place] for services. Trying to walk more despite pain. Continues to smoke but reports has cut down- 4 cigarettes/day. Current meal plan includes: 7-9am Premier Protein shake: 1 scoop in 8oz low fat unsweetened almond milk each 11am-1pm Protein bar (Celebrate or [employer] brand) 2-4pm Premier Protein shake: 1 scoop in 8oz low fat unsweetened almond milk each 5 or 6pm dinner: 7 forks protein, 7 forks salad/vegetables 7-9pm protein bar Current exercise plan includes: Sit and Be Fit 3x/week, trying to walk- 1 block, has not been going to PT regularly [facility] Medical History (Updated 01/01/23 @ 10:51 by Nguyen Heart) Drug-seeking behavior Depression Anxiety Carpal tunnel syndrome Fibromyalgia Hepatitis C Sleep apnea Osteoarthritis Cirrhosis of liver Surgical History History of carpal tunnel release Abnormal colonoscopy Family History Mother Osteoporosis Father Rheumatoid arthritis Other History of lupus Social History Household Members: None Alcohol intake: current Alcohol intake frequency: does not drink Patient Tobacco Use Status: Current everyday Tobacco user Current occupational status: disabled Assessment & Plan Assessment & Plan (1) Obesity, morbid, BMI 40.0-49.9: Code(s): E66.01 - Morbid (severe) obesity due to excess calories (2) Liver cirrhosis: Code(s): K74.60 - Unspecified cirrhosis of liver (3) Bilateral primary osteoarthritis of knee: Code(s): M17.0 - Bilateral primary osteoarthritis of knee (4) Fibromyalgia: Code(s): M79.7 - Fibromyalgia Plan Pt still struggling to make progress with weight loss. Encouraged consistency with meal plan despite other circumstances going on in her life. Reviewed need for EKG, UGI, H. pylori. Will discuss any need for further testing with Dr. Díaz after US results (pt has cirrhosis). Needs followup scheduled with RD, has appt with 04/25, pt requests SWL classes info sent again. RTC 6 weeks after testing completed. Patient is morbidly obese and is not considered stable at this time. I spent a total of 30 minutes reviewing/updating records, examining the patient and counseling the patient on weight management as detailed above. Telehealth Telehealth Location of provider rendering services: other Location of patient: address on file Patient Identification confirmed using: Name, : Yes Telehealth method: voice only Patient verbally consented to treatment: Yes Patient verbally consented to billing insurance company: Yes Patient informed of any privacy concerns related to visit: Yes Minutes spent on Phone/Video with Pt.: 20 Coding Level of Care Code Tele Est Pt Level 4 (35735) Diagnoses Obesity, morbid, BMI 40.0-49.9 E66.01 Liver cirrhosis K74.60 Bilateral primary osteoarthritis of knee M17.0 Fibromyalgia M79.7
[2023-04-10 10:42] VITALS: BMI 43.8
== END 2023-04-10 10:57 | disposition home or self-care (01) ==
LOC: HO.HBS 10:37
PROVIDERS: PCP Internal Medicine; Visit Provider Physician Assistant Surgical
DX: E66.01 Morbid (severe) obesity due to excess calories (principal); Z68.41 Body mass index [BMI] 40.0-44.9, adult; K74.60 Unspecified cirrhosis of liver; M17.0 Bilateral primary osteoarthritis of knee; M79.7 Fibromyalgia
CPT/HCPCS: 99214

== ENCOUNTER → 2023-04-10 10:37 | Outpatient (BNVA) | payer MEDICAID, SELFPAY | PROVIDERS: PCP Internal Medicine; Visit Provider Physician Assistant Surgical ==

== ENCOUNTER 2023-04-24 15:22 | Outpatient (AMB) | payer OTHER, SELFPAY ==
--- NOTE | 2023-04-24 16:12 | A.OFFWM_ITS ---
Intake Intake Visit Reasons: (telephone) F/U Allergies gabapentin Allergy (Intermediate, Verified 11/14/22 10:55) Swelling [facility] Medical History (Updated 01/01/23 @ 10:51 by Nguyen Heart) Drug-seeking behavior Depression Anxiety Carpal tunnel syndrome Fibromyalgia Hepatitis C Sleep apnea Osteoarthritis Cirrhosis of liver Surgical History History of carpal tunnel release Abnormal colonoscopy Family History Mother Osteoporosis Father Rheumatoid arthritis Other History of lupus Social History Household Members: None Alcohol intake: current Alcohol intake frequency: does not drink Patient Tobacco Use Status: Current everyday Tobacco user Current occupational status: disabled Behavioral Health Assessment Weight Management Therapy Therapy Notes Details re-establishing in the program after moving and dealing with some transportation issues. Also started therapy at [facility] on [facility] with Marbella. She reported that it is going well and really likes her new therapist, she will also be referred to psychiatrist there. Alma stated that she can now focus on the program and loosing weight. Pt is looking to have weight loss surgery to help improve her health and quality of life. Pt was seeing a psychiatrist and therapist from [address] [place] [address]. She has appointments over the phone however they are retiring soon. She reported that she has a history of depression and anxiety. She denied any history of problems with drugs or alcohol. and no history of inpatient hospitalizations. Presenting Concerns Referral Source provider Reason for referral weight loss surgery evaluation Precipitating Event obesity Living Situation0 Current Living Situation Rent At risk of losing current housing? No Satisfied with current living situation? Yes Comments Patient lives alone in an apartment. Food/Weight/Diet Expectations of change weight loss and maintenance History/Relationship with food Patient stated that she struggles with eating too much sweets, sugar, baked goods, and also bigger portions than she should. History/Relationship with weight She reported that she gained weight when she moved her from [place] five years ago. Social History0 Family history and relationship Pt reported that she was born in [place] and moved to [place] at age 3 raised by her parents and 3 sisters. She moved here 5 years ago and has her daughter in this area (3 total) and other family members. She stated that her mother just from Alzheimer's. Her father ten years ago. 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 none known Education Preferred learning style Auditory, Verbal, Written, Learn by doing and Visual Currently enrolled in educational program? No Interested in further educational program? No Employment Employment Status Other Meaningful activities spending time with family Financial Situation Describe current financial situation Occasional struggle Financial assistance? None Service Service? No Mental Health and Addiction Treatment Current/Past substance abuse? No Current/Past addictive behavior concerns? No Medical and Physical Health Summary Physical exam in the last year? Yes Pain Screening Pain in the last few months? Yes Medications Is the patient compliant with medications? Yes Does the patient have Ghosh Guardian in place? Not applicable Does the patient use complimentary health approaches? No Trauma/Abuse History History of trauma? Yes Assessment & Plan Assessment & Plan (1) Posttraumatic stress disorder: Code(s): F43.10 - Post-traumatic stress disorder, unspecified (2) Asthma: Code(s): J45.909 - Unspecified asthma, uncomplicated (3) Obesity, morbid, BMI 40.0-49.9: Code(s): E66.01 - Morbid (severe) obesity due to excess calories Plan Pt has improved her housing situation, is close to family now, and has [facility] providers. She is cleared for surgery when ready and would like to be seen again. Telehealth Telehealth Location of provider rendering services: other Location of patient: address on file Patient Identification confirmed using: Name, : Yes Telehealth method: voice only Patient verbally consented to treatment: Yes Patient verbally consented to billing insurance company: Yes Patient informed of any privacy concerns related to visit: Yes Minutes spent on Phone/Video with Pt.: 25 Coding Level of Care Code Tele Psytx 30 mins (69085) Diagnoses Posttraumatic stress disorder F43.10 Asthma J45.909 Obesity, morbid, BMI 40.0-49.9 E66.01 Time Spent (min) 25
== END 2023-04-24 16:08 | disposition home or self-care (01) ==
PROVIDERS: PCP Internal Medicine; Visit Provider Counselor Mental Health
DX: F43.12 Post-traumatic stress disorder, chronic (principal); E66.01 Morbid (severe) obesity due to excess calories; J45.909 Unspecified asthma, uncomplicated
CPT/HCPCS: 90832

== ENCOUNTER → 2023-04-24 15:22 | Outpatient (BNVA) | payer MEDICAID, SELFPAY | PROVIDERS: PCP Internal Medicine; Visit Provider Counselor Mental Health ==

== ENCOUNTER 2024-03-14 12:18 | Outpatient (AMB) | payer MEDICAID, SELFPAY ==
--- NOTE | 2024-03-14 12:33 | MHC.OFFVIS ---
Vital Signs 03/14/24 12:39 Height 4 ft 11 in Weight 228 lb 13.437 oz BMI 46.2 BP 116/68 Blood Pressure Location Lt brachial Position Sitting Pulse 98 Pulse Source Pulse Oximeter Pulse Oximetry (%) 98 Oxygen Delivery Method Room Air Intake Visit Reasons: FMS Intake Note: Patient presents for FMS. Allergies gabapentin Allergy (Intermediate, Verified 03/14/24 12:37) Swelling Medication List - Last Reconciled 03/14/24 by Bria Bella MD albuterol sulfate 90 mcg/actuation (Ventolin HFA) 2 puffs inhalation QID PRN aripiprazole 10 mg PO QAM carvedilol 3.125 mg PO BID cholecalciferol (vitamin D3) 25 mcg PO DAILY clonazepam 0.5 mg PO BID PRN fluticasone propion-salmeterol 500-50 mcg/dose (Advair Diskus) 1 ea inhalation BID hydrochlorothiazide 12.5 mg PO DAILY montelukast 5 mg PO BID [shower chair As directed] tiotropium bromide 1.25 mcg/actuation (Spiriva Respimat) 2 puffs inhalation DAILY tolterodine 2 mg PO BID vitamin A palmitate 10,000 units PO DAILY [walker As directed] walker with seart attachment HPI Comments Details: Patient is a 63 y.o. morbidly obese female with anxiety/depression, HTN, asthma, liver cirrhosis 2/2 NAFLD, hx of hep C s/p treatment, bilateral primary OA of the knee and fibromylagia here today for follow up Interval History: Patient last seen 12/2021 for evaluation of fibromyalgia and OA. She previously saw Dr. Oreilly at [facility]. At that time she continued to complain of diffuse aches and pains. Recommendations were for consistency in CPap use and light exercise Today, she is complaining of diffuse pains Rheumatologic History: Follows rheum for OA and fibromyalgia Previously followed Dr Oreilly at [facility]. [place] [facility] [place] Previously tried gabapentin and Lyrica but had an allergic reaction Previously on duloxetine but this was stopped due to concern for liver toxicity in the setting of her cirrhosis Current Rheumatology Medication(s): [facility] Medical History (Updated 01/01/23 @ 10:51 by Nguyen Heart) Drug-seeking behavior Depression Anxiety Carpal tunnel syndrome Fibromyalgia Hepatitis C Sleep apnea Osteoarthritis Cirrhosis of liver Surgical History History of carpal tunnel release Abnormal colonoscopy Family History Mother Osteoporosis Father Rheumatoid arthritis Other History of lupus Social History Household Members: None Alcohol intake: current Alcohol intake frequency: does not drink Patient Tobacco Use Status: Current everyday Tobacco user Current occupational status: disabled Review of Systems Const Details: Review of Systems Constitutional: Denies fever, chills, weight loss ENT: Denies vision changes, eye pain or eye redness, dental caries, dry mouth GI: Denies nausea, vomiting, diarrhea, abdominal pain, change in BM Pulm: Denies SOB, MAN, hemoptysis, wheezing Cards: Denies chest pain, palpitations Skin: Denies Raynaud's, rash, nail changes, photosensitivity, STORAGE SOLUTIONS ARCHITECT: Denies headaches, weakness, paresthesias, recurrent falls MSK: as per HPI All other systems reviewed and are unremarkable except noted above Physical Exam Vital signs reviewed Physical Examination CONSTITUITIONAL Patient alert and cooperative. Well appearing and in no apparent painful distress HEENT Conjunctiva and sclera clear. ?Pupils equal round and reactive to light. ?No lymphadenopathy. ? CHEST/RESPIRATORY SYSTEM Normal respiratory effort and able to speak in complete sentences. ?Clear to auscultation bilaterally. ?No crackles, rales, rhonchi, wheezes heard. CARDIAC SYSTEM Regular rate and rhythm. ?S1 and S2 heard no murmurs. 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 No deformities noted. ?No synovitis noted to the MCPs, PIPs or DIPs. ?No tenderness to palpation of these joints. Wrists: ?Full range of motion at the wrists without pain. ?No tenderness to palpation or synovitis noted to the wrists. Elbows: Full range of motion without pain. No tenderness, weakness, swelling, increased warmth or erythema. Shoulders: Full range of motion without pain. No tenderness, weakness, swelling, increased warmth or erythema. Hips: Full range of motion pain with motion. Hip bursa: Tenderness to palpation Knees: ?Full range of motion. ?No tenderness, swelling, increased warmth or erythema.?No effusion or crepitations Ankles: Full range of motion. ?No tenderness, swelling, increased warmth or erythema.? Feet: ?Negative squeeze test. ?No tenderness to palpation or swelling of the MTPs. Tender points:? Tenderness to palpation of the bilateral trapezius, supraspinatus, greater trochanters, anterior costochondral junctions, bilateral gluteal areas, bilateral suboccipital muscle insertions SKIN Skin intact without rashes. Assessment & Plan Assessment & Plan (1) Fibromyalgia: Code(s): M79.7 - Fibromyalgia Category: Medical Plan: #Fibromyalgia Patient with known fibromyalgia. Failed gabapentin and pregabalin because of allergy. No longer on duloxetine because of concern for liver however it was not helpful while she was on it. We will try cyclobenzaprine and Savella Plan - Cyclobenzaprine 5mg at night - Savella 25mg bid - RTC 6 months - PT ordered (2) Bilateral primary osteoarthritis of knee: Code(s): M17.0 - Bilateral primary osteoarthritis of knee Category: Medical Plan: #Bilateral knee OA Currently seeing orthopedic surgery for bilateral knee replacement. However she needs to lose weight before they will consider taking her to surgery. Has tried steroid injections as well as gel injections with little to no effect. No further recommendations for her knee OA at this time. Plan I spent 20 minutes reviewing the record and labs, taking a history, examining the patient, discussing the treatment plan and documenting in the medical record Orders: Orders PT Evaluation and Treatment Today M79.7 - Fibromyalgia Medications: New cyclobenzaprine 5 mg PO BEDTIME 90 days 90 tabs 1RF M17.0 - Bilateral primary osteoarthritis of knee, M79.7 - Fibromyalgia milnacipran (Savella) 25 mg PO BID 90 days 180 tabs 1RF M79.7 - Fibromyalgia Coding Level of Care Code Est Pt Level 3 (87381) Diagnoses Fibromyalgia M79.7 Bilateral primary osteoarthritis of knee M17.0
[2024-03-14 12:39] VITALS: BP 116/68; PULSE 98; O2SAT 98; BMI 46.2
== END 2024-03-14 13:04 | disposition home or self-care (01) ==
PROVIDERS: PCP Internal Medicine; Visit Provider Student in an Organized Health Care Education/Training Program
DX: M79.7 Fibromyalgia (principal); M17.0 Bilateral primary osteoarthritis of knee
CPT/HCPCS: 99213

== ENCOUNTER → 2024-03-14 12:18 | Outpatient (BNVA) | payer OTHER, SELFPAY | PROVIDERS: PCP Internal Medicine; Visit Provider Student in an Organized Health Care Education/Training Program | DX: M79.7 Fibromyalgia (principal); M17.0 Bilateral primary osteoarthritis of knee | CPT/HCPCS: 99212 ==

== ENCOUNTER 2024-12-10 12:23 | Outpatient (AMB) | payer MEDICAID, SELFPAY ==
--- NOTE | 2024-12-10 12:35 | A.OFFVIS_ITS ---
Vital Signs 12/10/24 12:36 Height 4 ft 11 in Weight 232 lb 12.93 oz BMI 47.0 BP 110/80 Blood Pressure Location Lt brachial Position Sitting Pulse 94 Pulse Source Pulse Oximeter Pulse Oximetry (%) 97 Oxygen Delivery Method Room Air Intake Visit Reasons: follow up Intake Note: Patient presents for follow up on fibromyalgia/osteoarthritis of the knee. Accompanied by: Self / Same As Patient Allergies gabapentin Allergy (Intermediate, Verified 03/14/24 12:37) Swelling Medication List - Last Reconciled 12/10/24 by Bria Bella MD albuterol sulfate 90 mcg/actuation (Ventolin HFA) 2 puffs inhalation QID PRN aripiprazole 10 mg PO QAM carvedilol 3.125 mg PO BID cholecalciferol (vitamin D3) 25 mcg PO DAILY clonazepam 0.5 mg PO BID PRN cyclobenzaprine 5 mg PO BEDTIME 90 days fluticasone propion-salmeterol 500-50 mcg/dose (Advair Diskus) 1 ea inhalation BID hydrochlorothiazide 12.5 mg PO DAILY milnacipran (Savella) 25 mg PO BID 90 days montelukast 5 mg PO BID [shower chair As directed] tiotropium bromide 1.25 mcg/actuation (Spiriva Respimat) 2 puffs inhalation DAILY tolterodine 2 mg PO BID [walker As directed] ghassan with seart attachment HPI Comments Details: Patient is a 64 y.o. morbidly obese female with anxiety/depression, HTN, asthma, liver cirrhosis 2/2 NAFLD, hx of hep C s/p treatment, bilateral primary OA of the knee and fibromylagia here today for follow up Interval History: Patient last seen 03/14/2024 with me - Not on any rheum medications - She is complaining of diffuse pains - Started on cyclobenzaprine and Savella Today - On cyclobenzaprine 5mg nightly and Savella 25mg bid - Not sure if the Savella is working, but has good days and bad days - Some help from the cyclobenzaprine - Complaining of whole body pain Rheumatologic History: Follows rheum for OA and fibromyalgia Previously followed Dr Oreilly at [place]. Transferred care to [facility] 12/2021 Previously tried gabapentin and Lyrica but had an allergic reaction Previously on duloxetine but this was stopped due to concern for liver toxicity in the setting of her cirrhosis Current Rheumatology Medication(s): Cyclobenzaprine 5mg nightly Savella 25mg bid [facility] Medical History (Updated 01/01/23 @ 10:51 by Nguyen Heart) Drug-seeking behavior Depression Anxiety Carpal tunnel syndrome Fibromyalgia Hepatitis C Sleep apnea Osteoarthritis Cirrhosis of liver Surgical History (Updated 12/10/24 @ 12:39 by Dot Finney [facility]) History of ablation of neoplasm of liver History of carpal tunnel release Abnormal colonoscopy Family History Mother Osteoporosis Father Rheumatoid arthritis Other History of lupus Social History Household Members: None Alcohol intake: current Alcohol intake frequency: does not drink Patient Tobacco Use Status: Current everyday Tobacco user Current occupational status: disabled Review of Systems Const Details: Review of Systems Constitutional: Denies fever, chills, weight loss ENT: Denies vision changes, eye pain or eye redness, dental caries, dry mouth GI: Denies nausea, vomiting, diarrhea, abdominal pain, change in BM Pulm: Denies SOB, MAN, hemoptysis, wheezing Cards: Denies chest pain, palpitations Skin: Denies Raynaud's, rash, nail changes, photosensitivity, [employer]LE[employer] CO[employer]: Denies headaches, weakness, paresthesias, recurrent falls MSK: as per HPI All other systems reviewed and are unremarkable except noted above Physical Exam Exam Exam: Vital signs reviewed Physical Examination CONSTITUITIONAL Patient alert and cooperative. Well appearing and in no apparent painful distress MSK Hands * Right Hand: Able to make a fist. No swelling or tenderness to palpation of the MCPs, PIPs or DIPs. * Left Hand: Able to make a fist. No swelling or tenderness to palpation of the MCPs, PIPs or DIPs. Wrists * Right Wrist: Full ROM to flexion and extension. No swelling or TTP * Left Wrist: Full ROM to flexion and extension. No swelling or TTP Elbows * Right Elbow: Full ROM. No swelling or TTP. No TTP of the medial epicondyle. No TTP of the lateral epicondyle * Left Elbow: Full ROM. No swelling or TTP. No TTP of the medial epicondyle. No TTP of the lateral epicondyle. Small mobile cyst noted distal to the elbow Shoulders * Right shoulder: Full ROM. No swelling noted. No TTP of the AC joint. No TTP of the subacromial bursa. No TTP of the posterior shoulder * Left shoulder: Full ROM. No swelling noted. No TTP of the AC joint. No TTP of the subacromial bursa. No TTP of the posterior shoulder Hip bursa: Tenderness to palpation bilaterally Knees * Right knee: Full ROM. No swelling noted. TTP of the knee joint line. No TTP of pes anserine bursa * Left knee: Full ROM. No swelling noted. TTP of the knee joint line. No TTP of pes anserine bursa. Ankles * Right ankle: Good ankle dorsiflexion and plantar flexion. No swelling. No TTP of the ankle joint * Left ankle: Good ankle dorsiflexion and plantar flexion. No swelling. No TTP of the ankle joint Feet * Right foot: Negative squeeze test * Left foot: Negative squeeze test Tender points? * Tenderness to palpation of the bilateral trapezius, supraspinatus, anterior costochondral junctions, bilateral suboccipital muscle insertions SKIN No rashes Results Reviewed Results Reviewed: XR Bilateral Knees 01/2022 FINDINGS: AP Bilateral Knee Standing: There is genu varus deformity of both knee joints slightly greater on the right. There is severe loss of medial compartment joint space both knees with periarticular spurring right knee. No bony erosive changes or loose body seen. No joint effusion. No fracture. Right Knee: There is mild suprapatellar joint effusion with minimal loss of patellofemoral compartment joint space with no bony erosive changes or loose body seen. Left Knee: There is moderate loss of patellofemoral compartment joint space with inferior patellar spurring. No abnormal suprapatellar joint effusion seen. No bony erosive changes. No visible acute fracture or dislocation. IMPRESSION: 1. Severe degenerative changes medial compartment both knees with periarticular spurring. No visible acute fracture or dislocation seen. 2. There is mild suprapatellar joint effusion right knee. 3. There is moderate loss of patellofemoral compartment joint space with inferior patellar spurring left knee. 4. There is genu varus deformity of both knee joints slightly greater on the right. Assessment & Plan Assessment & Plan (1) Fibromyalgia: Code(s): M79.7 - Fibromyalgia Category: Medical Plan: #Fibromyalgia Patient is a 64 y.o. female with known fibromyalgia. Failed gabapentin and pregabalin because of allergy. No longer on duloxetine because of concern for liver however it was not helpful while she was on it. Not sure if Savella and cyclobenzaprine has been helpful. Will try increasing it Plan - Cyclobenzaprine 10mg at night - Savella 50mg bid - RTC 6 months - PT ordered (2) Bilateral primary osteoarthritis of knee: Code(s): M17.0 - Bilateral primary osteoarthritis of knee Category: Medical Plan: #Bilateral knee OA Currently seeing orthopedic surgery for bilateral knee replacement. However she needs to lose weight before they will consider taking her to surgery. Has tried steroid injections as well as gel injections with little to no effect. No further recommendations for her knee OA at this time. Plan I spent 20 minutes reviewing the record and labs, taking a history, examining the patient, discussing the treatment plan and documenting in the medical record Orders: Orders PT Evaluation and Treatment Today M79.7 - Fibromyalgia Medications: Changed From milnacipran (Savella) 25 mg PO BID 90 days 180 tabs 1RF M79.7 - Fibromyalgia To milnacipran 50 mg PO BID 180 tabs 1RF 90 days M79.7 - Fibromyalgia From cyclobenzaprine 5 mg PO BEDTIME 90 days 90 tabs 1RF M17.0 - Bilateral primary osteoarthritis of knee, M79.7 - Fibromyalgia To cyclobenzaprine 10 mg PO BEDTIME 90 tabs 1RF 90 days M17.0 - Bilateral primary osteoarthritis of knee, M79.7 - Fibromyalgia Refilled [shower chair] As directed 1 ea 0RF severe bilateral knee osteoarthritis [walker] As directed 1 ea 0RF cyclobenzaprine 5 mg PO BEDTIME 90 days 90 tabs 1RF M17.0 - Bilateral primary osteoarthritis of knee, M79.7 - Fibromyalgia Coding Level of Care Code Est Pt Level 3 (10129) Complex EM visit Add On G2211 Diagnoses Fibromyalgia M79.7 Bilateral primary osteoarthritis of knee M17.0
[2024-12-10 12:36] VITALS: BP 110/80; PULSE 94; O2SAT 97; BMI 47.0
--- OUTSIDE RECORDS SUMMARY | 2024-12-10 15:41 | XMS_ITS | Clinical Summary ---
Author Organization [facility] Address [address] [place] [address] Care Team Providers Care Dice Dealer Name Role Phone Chris Clement Primary Care Provider [phone] Allergies Active Allergy Reactions Criticality Noted Date Comments Naproxen Angioedema High 05/10/2023 Gabapentin Swelling High 09/18/2024 Medications tiotropium bromide (SPIRIVA RESPIMAT) 1.25 mcg/actuation mist Inhale 2 puffs by mouth once a day. Active omeprazole (PriLOSEC) 40 mg capsule Take 40 mg by mouth daily. 5 Active montelukast (SINGULAIR) [address] 1 TAB INTO MOUTH, CHEW AND SWALLOW NIGHTLY AT BEDTIME 5 Active Savella 25 mg tablet Take 25 mg by mouth 2 times daily. 5 Active loratadine (CLARITIN) 10 mg tablet daily as needed. 5 Active lactulose 10 gram/15 mL solution TAKE 30 ML BY MOUTH 2 TIMES DAILY NEEDED FOR CONSTIPATION. 5 Active ipratropium-alb uteroL (DUO-NEB) 0.5-2.5 mg/3 mL nebulizer solution USE 1 VIAL VIA NEBULIZER EVERY 6 HOURS NEEDED FOR WHEEZE/ SHORTNESS OF BREATH Active hydroCHLOROthia zide (HYDRODIURIL) 25 mg tablet SMARTSI Tablet(s) By Mouth Daily Active Breo Ellipta 200-25 mcg/dose blister with device SMARTSI Puff(s) By Mouth Daily Active fluticasone propionate (FLONASE) 50 mcg/actuation nasal spray Administer 2 sprays into affected nostril(s). Active estradioL (ESTRACE) 0.01 % (0.1 mg/gram) vaginal cream USE DIRECTED: 1 GRAM PER VAGINA 3X PER WEEK Active cyclobenzaprine (FLEXERIL) 5 mg tablet Take 5 mg by mouth. Active clonazePAM (KlonoPIN) 0.5 mg tablet Take 0.5 mg by mouth 2 times a day. Active cholecalciferol (VITAMIN D3) 1,250 mcg (50,000 unit) capsule NEEDS REFILL. Active carvediloL (COREG) 3.125 mg tablet Take 3.125 mg by mouth. 5 Active Wellbutrin SR 100 mg tablet Active atorvastatin (LIPITOR) 40 mg tablet Take 40 mg by mouth at bed time. at bedtime 5 Active ARIPiprazole (ABILIFY) 10 mg tablet SMARTSI Tablet(s) By Mouth Every Morning Active albuterol (ProAir HFA) 90 mcg inhaler INHALE 2 PUFFS 4 TIMES A DAY NEEDED FOR WHEEZING ( DOING PA) Active traMADoL (ULTRAM) 50 mg tablet Take 1 tablet (50 mg total) by mouth every 8 hours as needed for pain. 12 tablet 5 Active Active Problems Problem Noted Date Diagnosed Date Hepatocellular carcinoma in adult 10/21/2024 Encounters Date Type Department Care Team Description 11/27/2024 Orders Only External Imaging [address] [place] [address] Radiology, External 10/30/2024 Orders Only [facility] Transplant Department [address] [place] [address] Kelly Mason, MERCURY WASHER Hepatocellular carcinoma in adult (HCC) (Primary Dx) 10/23/2024 Telephone [facility] Interventional Radiology [address] [place] [address] Lana Kan LPN 10/21/2024 2:37 PM EDT - 10/22/2024 3:33 PM EDT Hospital Encounter [facility] [address] [place] [address] Ellis Romero MD [place] Figueira, Tomas Manuel, MD Camann, Zachary A, MD Ciaramella, Alexander, MD HCC (hepatocellular carcinoma) (HCC) Discharge Disposition: Home or Self Care () 10/21/2024 11:38 AM EDT Anesthesia Event [facility] [address] [place] [address] Sohail Milligan MD 10/14/2024 11:15 AM EDT Pre-Admission Testing [facility] [address] [facility] [address] [place] [address] Preop examination (Primary Dx) 10/02/2024 11:27 AM EDT - 10/02/2024 11:59 PM EDT Hospital Encounter [facility] CT [address] [place] [address] Ellis Romero MD Discharge Disposition: Home or Self Care () 10/02/2024 10:33 AM EDT - 10/02/2024 11:26 AM EDT Hospital Encounter [facility] Interventional Radiology [address] [place] [address] Ellis Romero MD HCC (hepatocellular carcinoma) (HCC) Discharge Disposition: Home or Self Care () 09/30/2024 Telephone [facility] Interventional Radiology [address] [place] [address] Tia Briones, CLINICAL EDUCATOR 09/18/2024 3:00 PM EDT Evaluation [facility] [address] [place] [address] Ellis Romero MD HCC (hepatocellular carcinoma) (HCC) (Primary Dx); History of hepatitis C; Other cirrhosis of liver (HCC) 09/09/2024 Abstract [facility] Transplant Department [address] [place] [address] Kelly Mason NP from Last 3 Months Family History Medical History Relation Name Comments Colon cancer Father Coronary artery disease Father Heart disease Father Hypertension Father Leukemia Father Stroke Father Alzheimer's disease Mother Heart failure Mother Thyroid disease Mother Diabetes Sister Thyroid disease Sister Relation Name Status Comments Father Mother Sister Alive Social History Tobacco Use Types Packs/Day Years Used Date Smoking Tobacco: Former Cigarettes Smokeless Tobacco: Never Tobacco Cessation:Counseling Given: Not Answered Comments:Quit 04/2024 Alcohol Use Standard Drinks/Week Comments Never 0 (1 standard drink = 0.6 oz pur e alcohol) Comments No Sex and Gender Information Value Date Recorded Sex Assigned at Female 09/15/2024 4:53 PM EDT Legal Sex Female 4:45 PM EDT Gender Identity Female 10/20/2024 2:15 PM EDT Sexual Orientation Straight 10/20/2024 2: 15 PM EDT Last Filed Vital Signs Vital Sign Reading Time Taken Comments Blood Pressure 129/66 10/22/2024 10:04 AM EDT Pulse 83 10/22/2024 10:04 AM EDT Temperature 36.6 C (97.9 F) 10/22/2024 10:04 AM EDT Respiratory Rate 18 10/22/2024 10:04 AM EDT Oxygen Saturation 95% 10/22/2024 10:04 AM EDT Inhaled Oxygen Concentration - - Weight 99.8 kg (220 lb) 10/02/2024 10:57 AM EDT Height 149.9 cm (4' 11 ) 10/02/2024 10:57 AM EDT Body Mass Index 44.43 10/02/2024 10:57 AM EDT Plan of Treatment Upcoming Encounters Date Type Department Care Team (Late st Contact Info) Description 12/11/2024 3:00 PM EDT Follow-Up [facility] [address], [place] [id number] Ellis Romero MD [address] [place] [address] [id number] Health Maintenance Due Date Last Done Comments Cervical Cancer Screening 1960 Cologuard 1960 Colon Cancer Screening 1960 Colonoscopy 1960 FOBT / Fit Test 1960 HPV and Pap Smear 1960 Pap Smear 1960 Sigmoidoscopy 1960 Mammogram 2001 Hepatitis B Vaccines (1 of 3 - Risk 3-dose series) 2021 RSV Vaccine (60+ years old a nd patients) (1 - Risk 60-74 years 1-dose series) 2021 COVID-19 Vaccine (3 - Modern a risk series) 02/10/2022 01/13/2022, 04/15/2021 Alcohol/Substance Use Screening 02/27/2024 Depression Screening and Follow-Up 02/27/2024 Social Drivers of Health Jane ual Screening 02/27/2024 Influenza Vaccine (#1) 2024 , 12/22/2022, 12/26/2021, Additional history exists CT Lung Cancer Screening (Baseline) 10/02/2025 10/02/2024 Diabetes Screening 09/19/2027 09/18/2024, 0 08/04/2024, 05/09/2023 DTaP,Tdap,and Td Vaccines (2 - Td or Tdap) 11/09/2027 11/08/2017 HIV Screening Completed 11/08/2017 Zoster Vaccines Completed 12/26/2021, 09/22/2021 Pneumococcal Vaccine: 50+ Years Completed 11/28/2023, 11/15/2018, 11/08/2017 Procedures * Due to [place] state law, this organization might not be sharing negative HIV tests. Procedure Name Priority Date/Time Associated Diagnosis Comments MRI ABDOMEN W WO CONTRAST Routine 11/27/2024 3:00 PM EDT Hepatocellular carcinoma in adult AMB EXTERNAL MRI ABDOMEN, OUTSIDE RESULT 11/27/2024 CT ABLATION (RF) LIVER TUMOR PERCUTANEOUS Routine 10/21/2024 2:16 PM EDT HCC (hepatocellular carcinoma) (HCC) CT CHEST WO CONTRAST Routine 10/02/2024 11:50 AM EDT HCC (hepatocellular carcinoma) (HCC) CBC AUTO DIFFERENTIAL Routine 09/18/2024 3:59 PM EDT HCC (hepatocellular carcinoma) (HCC) COMPREHENSIVE METABOLIC PANEL Routine 09/18/2024 3:59 PM EDT HCC (hepatocellular carcinoma) (HCC) PROTIME-INR Routine 09/18/2024 3:59 PM EDT HCC (hepatocellular carcinoma) (HCC) HEPATOCELLULAR CARCINOMA PANEL -[id number] Routine 09/18/2024 3:59 PM EDT HCC (hepatocellular carcinoma) (HCC) HEPATITIS A ANTIBODY, TOTAL Routine 09/18/2024 3:59 PM EDT Other cirrhosis of liver (HCC) HEPATITIS B SURFACE ANTIBODY Routine 09/18/2024 3:59 PM EDT Other cirrhosis of liver (HCC) HEPATITIS C RNA, QUANTITATIVE PCR W/REFLEX HCV GENOTYPE Routine 09/18/2024 3:59 PM EDT History of hepatitis C from Last 3 Months Results * Due to [place] state law, this organization might not be sharing negative HIV tests. * MRI Abdomen W WO Contrast (11/27/2024 3:00 PM EDT) Anatomical Region Laterality Modality Body, Abdomen Magnetic Resonan ce 11/27/2024 2:20 PM EDT Narrative 11/28/2024 9:54 AM EDT [facility] Accession Number: [id number] Patient Name: Alma Parker Date of : 1960 Date of Exam: 11-27-2024 Referring Physician: Ellis Romero [address] [address] Exam: MR Abdomen (C-/C+) CPT 84760 Room Description: [facility] 3T MRI Abdomen W+W/O Contrast Liver disease, chronic, tumor screening HCC s/p ablation, assess treatment response TECHNIQUE: Multiplanar, multisequence pre and post contrast MRI evaluation of the abdomen was performed. 10 cc of Elucirem gadolinium administered intravenously. COMPARISON: Outside MRI abdomen 08/19/2024. FINDINGS: LOWER THORAX: No pleural or pericardial effusion. LIVER: Cirrhotic morphology. Heterogeneous parenchymal enhancement on hepatic arterial phase images. Ablation cavity posteriorly in the right hepatic lobe segment 7 measures approximately 3.0 x 2.6 cm (). There is peripheral T1 hyperintensity and T1 hypointensity, most likely related to coagulative necrosis. There is no central enhancement. Peripheral treatment related enhancement. LR-TR nonviable. There are a few small subcapsular foci of arterial hyperenhancement scattered throughout the hepatic parenchyma (for example images 17, 27, 33 and 46 of series 1101). There is no corresponding abnormality on the noncontrast T1 and T2-weighted sequences. There is no washout. This may be sequelae of small shunts or transient hepatic intensity differences. LI-RADS 3. Tubular areas of nonenhancement measuring 1.3 cm (), and 1.8 cm () in segment 8 are likely the tract of the ablation probe. No new suspicious lesion. GALLBLADDER: Normal. No gallstones or wall thickening. BILE DUCTS: No biliary ductal dilatation. SPLEEN: Normal. PANCREAS: Normal. No pancreatic ductal dilatation. ADRENAL GLANDS: Mild left adrenal thickening, unchanged. No discrete adrenal nodularity. KIDNEYS: No hydronephrosis. Kidneys enhance symmetrically. Few subcentimeter bilateral renal T2 hyperintense foci consistent with cysts. No suspicious mass. STOMACH/UPPER GI TRACT: Stomach and visualized abdominal bowel normal in caliber. PERITONEUM AND RETROPERITONEUM: No loculated fluid collection or peritoneal mass. LYMPH NODES: Small boubacar hepatis and portacaval lymph nodes measuring up to 8 mm () are unchanged, nonspecific. VESSELS: Abdominal aorta is nonaneurysmal with mild atherosclerotic irregularity. Hepatic, portal and splenic veins patent. Visualized inferior vena cava unremarkable. Few small perigastric and periesophageal collateral vessels/varices, likely related to portal hypertension. ABDOMINAL WALL: Unremarkable. BONES: Mild degenerative changes involve the spine. IMPRESSION: Ablation cavity in the posterior aspect of the right hepatic lobe in segment 7. No internal solid enhancement. LR-TR nonviable. Few small subcapsular foci of arterial enhancement without corresponding findings on the noncontrast sequences and no washout. These may reflect small shunts or transient hepatic intensity differences. LI-RADS 3. Cirrhotic liver. WSN: [id number] Ordering Physician: Ellis Romero MD Electronically Signed By: Pankaj Garcia MD Procedure Note Provider, Sanchez - 11/28/2024 [facility] Accession Number: [id number] Patient Name: Alma Parker Date of : 1960 Date of Exam: 11-27-2024 Referring Physician: Ellis Romero [address] - [id number] [place], [place] [address] Exam: MR Abdomen (C-/C+) CPT 56533 Room Description: [facility] 3T MRI Abdomen W+W/O Contrast Liver disease, chronic, tumor screening HCC s/p ablation, assesstreatment response TECHNIQUE: Multiplanar, multisequence pre and post contrast MRI evaluationof the abdomen was performed. 10 cc of Elucirem gadolinium administered intravenously. COMPARISON: Outside MRI abdomen 08/19/2024. FINDINGS: LOWER THORAX: No pleural or pericardial effusion. LIVER: Cirrhotic morphology. Heterogeneous parenchymal enhancement onhepatic arterial phase images. Ablation cavity posteriorly in the right hepaticlobe segment 7 measures approximately 3.0 x 2.6 cm (). There isperipheral T1 hyperintensity and T1 hypointensity, most likely related to coagulativenecrosis. There is no central enhancement. Peripheral treatment relatedenhancement. LR-TR nonviable. There are a few small subcapsular foci of arterial hyperenhancementscattered throughout the hepatic parenchyma (for example images 17, 27, 33 and 46 of series 1101). There is no corresponding abnormality on the noncontrast T1and T2-weighted sequences. There is no washout. This may be sequelae of smallshunts or transient hepatic intensity differences. LI-RADS 3. Tubular areas of nonenhancement measuring 1.3 cm (), and 1.8 cm() in segment 8 are likely the tract of the ablation probe. No new suspicious lesion. GALLBLADDER: Normal. No gallstones or wall thickening. BILE DUCTS: No biliary ductal dilatation. SPLEEN: Normal. PANCREAS: Normal. No pancreatic ductal dilatation. ADRENAL GLANDS: Mild left adrenal thickening, unchanged. No discreteadrenal nodularity. KIDNEYS: No hydronephrosis. Kidneys enhance symmetrically. Fewsubcentimeter bilateral renal T2 hyperintense foci consistent with cysts. No suspiciousmass. STOMACH/UPPER GI TRACT: Stomach and visualized abdominal bowel normal in caliber. PERITONEUM AND RETROPERITONEUM: No loculated fluid collection orperitoneal mass. LYMPH NODES: Small boubacar hepatis and portacaval lymph nodes measuring upto 8 mm () are unchanged, nonspecific. VESSELS: Abdominal aorta is nonaneurysmal with mild atherosclerotic irregularity. Hepatic, portal and splenic veins patent. Visualizedinferior vena cava unremarkable. Few small perigastric and periesophageal collateral vessels/varices, likely related to portal hypertension. ABDOMINAL WALL: Unremarkable. BONES: Mild degenerative changes involve the spine. IMPRESSION: Ablation cavity in the posterior aspect of the right hepatic lobe insegment 7. No internal solid enhancement. LR-TR nonviable. Few small subcapsular foci of arterial enhancement without corresponding findings on the noncontrast sequences and no washout. These may reflectsmall shunts or transient hepatic intensity differences. LI-RADS 3. Cirrhotic liver. WSN: [id number] Ordering Physician: Ellis Romero MD Electronically Signed By: Pankaj Garcia MD us Ellis Ramos. Nick SMITH IMG MRI PROCEDURES Final Resu lt * MRI Abdomen, Outside Result (11/27/2024) Anatomical Region Laterality Modality Other 11/27/2024 us Onbase Scan Alla AMB EXTERNAL RESULT PROCEDURE S Final Result * CT Ablation (RF) Liver Tumor Percutaneous (10/21/2024 2:16 PM EDT) Anatomical Region Laterality Modality Body, Abdomen and Pelvis Compute d Tomography 10/21/2024 2:35 PM EDT Impressions 10/23/2024 5:47 PM EDT Percutaneous microwave ablation of lesion in right lobe of liver. OR IR APPLICABLE Tumor corresponding to observation(s) 1 located in VII, LI-RADS category 5 from the diagnostic imaging report dated 08/19/2024 , was treated with ablation. Plan: Follow up with Hepatology/Gastroenterology PROCEDURE SUMMARY: - Target site: [place] liver - Image-guided heat-based ablation, Microwave ablation - Additional procedure(s): None PROCEDURE DETAILS: Pre-procedure Consent: Informed consent for the procedure including risks, benefits and alternatives was obtained and time-out was performed prior to the procedure. Preparation: The site was prepared and draped using maximal sterile barrier technique including cutaneous antisepsis. Anesthesia/sedation Level of anesthesia/sedation: General anesthesia Anesthesia/sedation administered by: Anesthesia team Pre-ablation imaging Modality: Noncontrast CT Findings: Lesion seen in seg VII. Heat-based ablation Under CT guidance, the ablation applicator(s) were advanced and positioned within the target(s). For each target lesion the applicators were placed and repositioned as necessary to achieve the desired ablation zone. The ablation applicator(s) were removed and sterile bandages were applied. Ablation applicator: 20 cm , 15 Gauge TN XT probe (iVilka) by 65 Romero for 10 mins. ~Target ~Target number:1 ~Maximal diameter (cm): 3.8 ~Location: Right Lobe ~~Ablation position: Segment VII ~~Number of applicators: 1 ~~Duration (minutes): 10 ~~Maximum energy applied (romero): 65 (preceded by surgical mode - 95 W for 1 minutes) ~~Tract cauterization performed with applicator removal: Yes ~~Intraprocedural imaging findings: Successful ablation of the lesion Post-ablation imaging Modality: Dual-phase CT Findings: Expected post ablation changes, no e/o active extravasation/hematoma Contrast Contrast agent: Omnipaque 350 Contrast volume (mL): [address] dose length product (mGy-cm): 3160 Additional Details Additional description of procedure: None Acute procedural success: Yes Registry event: V/3/f Device used: None Equipment details: None Unique Device Identifiers: Not available Specimens removed: None Estimated blood loss (mL): Less than 10 Standardized report: [email or web address] Attestation Signer name: Larry Javier I attest that I was present for the entire procedure. I reviewed the stored images and agree with the report as written. I, Larry Javier, have reviewed the examination and concur with the findings as reported or so edited. Trainee: Lexa Braun If this radiology report contains a blank impression section, it is an incomplete radiology report. Please contact the interpreting radiologist or applicable radiology division as soon as possible to obtain the completed interpretation. Workstation ID: [id number] Narrative 10/23/2024 5:47 PM EDT PROCEDURE: Image-guided heat-based ablation Procedural Personnel Attending physician(s): Larry Javier Fellow physician(s): None Resident physician(s): Keegan Salas Advanced practice provider(s): None Indication: Curative intent Pre-procedure diagnosis: Hepatocellular Carcinoma Post-procedure diagnosis: Same Additional clinical history: [place], HTN, COPD, HCV s/p treatment with clearance, and MASH cirrhosis Complications: No immediate complications. Resulting Agency Comment [id number] Procedure Note Larry Del Rio MD - 10/23/2024 PROCEDURE: Image-guided heat-based ablation Procedural Personnel Attending physician(s): Larry Javier Fellow physician(s): None Resident physician(s): Keegan Salas Advanced practice provider(s): None Indication: Curative intent Pre-procedure diagnosis: Hepatocellular Carcinoma Post-procedure diagnosis: Same Additional clinical history: [place], HTN, COPD, HCV s/p treatment withclearance, and MASH cirrhosis Complications: No immediate complications. IMPRESSION: Percutaneous microwave ablation of lesion in right lobe of liver. OR IR APPLICABLE Tumor corresponding to observation(s) 1 located in VII, LI-RADS category 5from the diagnostic imaging report dated 08/19/2024 , was treated with ablation. Plan: Follow up with Hepatology/Gastroenterology PROCEDURE SUMMARY: - Target site: [place] liver - Image-guided heat-based ablation, Microwave ablation - Additional procedure(s): None PROCEDURE DETAILS: Pre-procedure Consent: Informed consent for the procedure including risks, benefits andalternatives was obtained and time-out was performed prior to theprocedure. Preparation: The site was prepared and draped using maximal sterilebarrier technique including cutaneous antisepsis. Anesthesia/sedation Level of anesthesia/sedation: General anesthesia Anesthesia/sedation administered by: Anesthesia team Pre-ablation imaging Modality: Noncontrast CT Findings: Lesion seen in seg VII. Heat-based ablation Under CT guidance, the ablation applicator(s) were advanced and positionedwithin the target(s). For each target lesion the applicators were placedand repositioned as necessary to achieve the desired ablation zone. Theablation applicator(s) were removed and sterile bandages were applied. Ablation applicator: 20 cm , 15 Gauge TN XT probe (iVilka) by 65Watts for 10 mins. ~Target ~Target number:1 ~Maximal diameter (cm): 3.8 ~Location: Right Lobe ~~Ablation position: Segment VII ~~Number of applicators: 1 ~~Duration (minutes): 10 ~~Maximum energy applied (romero): 65 (preceded by surgical mode - 95 W for1 minutes) ~~Tract cauterization performed with applicator removal: Yes ~~Intraprocedural imaging findings: Successful ablation of the lesion Post-ablation imaging Modality: Dual-phase CT Findings: Expected post ablation changes, no e/o activeextravasation/hematoma Contrast Contrast agent: Omnipaque 350 Contrast volume (mL): [address] dose length product (mGy-cm): 3160 Additional Details Additional description of procedure: None Acute procedural success: Yes Registry event: V/3/f Device used: None Equipment details: None Unique Device Identifiers: Not available Specimens removed: None Estimated blood loss (mL): Less than 10 Standardized report: [email or web address] Attestation Signer name: Larry Yaya I attest that I was present for the entire procedure. I reviewed thestored images and agree with the report as written. I, Larry Javier, have reviewed the examination and concur with thefindings as reported or so edited. Trainee: Lexa Braun If this radiology report contains a blank impression section, it is anincomplete radiology report. Please contact the interpreting radiologistor applicable radiology division as soon as possible to obtain thecompleted interpretation. Workstation ID: [id number] us Ellis Romero MD IMG CT PROCEDURES Final Resul t * CT Chest without Contrast (10/02/2024 11:50 AM EDT) Anatomical Region Laterality Modality Body Computed Tomogra phy 10/02/2024 12:5 1 PM EDT Impressions 10/04/2024 2:03 PM EDT Impression: No evidence of metastatic disease in the chest. If this radiology report contains a blank impression section, it is an incomplete radiology report. Please contact the interpreting radiologist or applicable radiology division as soon as possible to obtain the completed interpretation. Workstation ID: [id number] Up-to-date CT equipment and radiation dose reduction techniques were employed. CTDIvol: 13.5 mGy. DLP: 425 mGy-cm. Narrative 10/04/2024 2:03 PM EDT Indication: 64-year-old female with history of cirrhosis. Newly diagnosed HCC. Chest CT scan for staging - Liver cell carcinoma. Comparison: MRI 08/19/2024. Dose: For radiation dose control at least one of the following techniques was used in this procedure (1) Automated exposure control (2) Adjustment of the mA and/or kV according to patient size (3) Use of iterative reconstruction technique. Findings: Neck and thoracic inlet: No abnormality. Mediastinum and large vessels: Aorta Mild aortic wall calcifications. Pulmonary arteries Unremarkable shape and diameter. Esophagus Normal esophagus. Other mediastinal findings None. Heart: Cardiac size Heart size is normal. Coronary arteries No coronary calcifications. Valves No valvular calcifications. Pericardium No abnormality. Lymph nodes: Supraclavicular and axillary Normal sized lymph nodes, no enlarged lymph nodes. Mediastinal Normal sized lymph nodes, no enlarged lymph nodes. Hilar Unremarkable hilar contours. The absence of intravenous contrast limits the evaluation for adenopathy. Lung parenchyma: Mild paraseptal emphysema. No pulmonary nodule or consolidation. Airways: No abnormality. Pleura: No abnormality. Upper abdomen: Cirrhosis of the liver. Known right lobe HCC is imaged to greater advantage on outside contrast-enhanced MRI. Chest wall and bones: No sclerotic or lytic osseous lesion. Resulting Agency Comment [id number] Procedure Note Medhat Rausch, DO - 10/04/2024 Indication: 64-year-old female with history of cirrhosis. Newly diagnosedHCC. Chest CT scan for staging - Liver cell carcinoma. Comparison: MRI 08/19/2024. Dose: For radiation dose control at least one of the following techniqueswas used in this procedure (1) Automated exposure control (2) Adjustmentof the mA and/or kV according to patient size (3) Use of iterativereconstruction technique. Findings: Neck and thoracic inlet: No abnormality. Mediastinum and large vessels: Aorta Mild aortic wall calcifications. Pulmonary arteries Unremarkable shape and diameter. Esophagus Normal esophagus. Other mediastinal findings None. Heart: Cardiac size Heart size is normal. Coronary arteries No coronary calcifications. Valves No valvular calcifications. Pericardium No abnormality. Lymph nodes: Supraclavicular and axillary Normal sized lymph nodes, no enlarged lymph nodes. Mediastinal Normal sized lymph nodes, no enlarged lymph nodes. Hilar Unremarkable hilar contours. The absence of intravenous contrast limitsthe evaluation for adenopathy. Lung parenchyma: Mild paraseptal emphysema. No pulmonary nodule or consolidation. Airways: No abnormality. Pleura: No abnormality. Upper abdomen: Cirrhosis of the liver. Known right lobe HCC is imaged to greateradvantage on outside contrast-enhanced MRI. Chest wall and bones: No sclerotic or lytic osseous lesion. IMPRESSION: Impression: No evidence of metastatic disease in the chest. If this radiology report contains a blank impression section, it is anincomplete radiology report. Please contact the interpreting radiologistor applicable radiology division as soon as possible to obtain thecompleted interpretation. Workstation ID: [id number] Up-to-date CT equipment and radiation dose reduction techniques wereemployed. CTDIvol: 13.5 mGy. DLP: 425 mGy-cm. us Ellis Romero MD IMG CT PROCEDURES Final Resul t * (ABNORMAL) Hepatocellular Carcinoma Panel (Includes AFP, AFP-L3 & DCP) (09/18/2024 3:59 PM EDT) AFP 161.0(H) 1.6 - 4.5 ng/mL 09/24/2024 6:50 PM EDT [facility]/N [employer]er Material [place] [employer] AFP-L3 83.6(H) 0.5 - 9.9 % 09/24/2024 6:50 PM EDT [facility]/Katt [facility] CENTERJuvencio [facility] Comment: The micro-total analysis system (uTASWako) employs microchip capillary electrophoresis to quantitatively measure AFP and AFP-L3% by immunochemical techniques. The assay principle involves DNA-coupled antibodies and dye labeled antibodies, which react with proteins in liquid phase within the microchannels. Both analytes are quantified using laser-induced fluorescence. Instrument and associated reagents are supplied by [employer] [facility] [place], [place], [place]. Patients with elevated AFP-L3% values (>=10%) have been shown to have an increased risk of developing hepatocellular carcinoma (HCC). In a selected group of patients, the risk of developing HCC was 48.8% with an elevated AFP-L3% and was 7.0% with a negative AFP-L3% result. Limitations of Procedure: 1. The AFP-L3% value is not calculated when the AFP-L3 concentration is below 0.3 ng/mL. In such cases the AFP-L3% result field will indicate NO VALUE DETERMINED 2. Heterophilic antibodies in human serum can react with the immunoglobulins included in the assay components causing interference with in vitro immunoassays. Samples from patients routinely exposed to animals or animal serum products can demonstrate this type of interference and can potentially cause an anomalous result. The [employer] System has been formulated to minimize the risk of the interference; however, potential interactions between rare sera and ingredients can occur. 3. For diagnostic purposes, the results obtained from this assay should always be used and interpreted in conjunction with clinical examination, patient medical history, and other findings. 4. can cause high values of AFP-L3% and AFP is not interpretable in females. 5. AFP producing tumors other than HCC can show high values of AFP-L3% and AFP. 6. Samples from patients having acute hepatitis and fulminant hepatitis can show high values of AFP-L3% and AFP. 7. It is recommended that this assay be used in conjunction with imaging studies for clinical diagnosis. 8. Liver diseases caused by other etiologies such as alcoholic liver disease, hemachromatosis, Rocky's disease, autoimmune hepatitis and steatohepatisis have not been studied with the assay. 9. The assay is linear for AFP concentration of 0.3 to 1000 ng/mL. 10. Values obtained with different assay methods or kits cannot be used interchangeably. DCP (Hps-Wobcy-Tlrztky- Prothrombin) 1.1 <7.5 ng/mL 09/24/2024 6:50 PM EDT [facility]/Katt BAR[facility]ONATHANUNIV[facility] CENTERJuvencio HERNANDEZ Comment: The [employer] DCP Immunological Test System is a clinical device used to quantitatively measure, by immunochemical technique, zdx-zblti-aamaesa-prothrombin (DCP) in serum. The assay uses DNA-coupled antibodies and dye labeled antibodies, which react with proteins in liquid phase within the microchannels. Both analytes are quantified using laser-induced fluorescence. Instrument and associated reagents are supplied by [facility] [place], [place], [place]. DCP levels increase in patients with hepatocellular carcinoma (HCC) and liver cirrhosis. DCP does not correlate with AFP/AFPL3% but appears to be a complementary assay for assessing, risk of developing HCC. In a selected group of patients, the risk of developing HCC was 36.5% with an elevated DCP result and was 7.6% with a negative DCP result. Limitations of Procedure: 1. Heterophilic antibodies in human serum can react with the immunoglobulins included in the assay components causing interference with in vitro immunoassays. Sample from patients routinely exposed to animals or animal serum products can demonstrate this type of interference potentially causing an anomalous result. The [employer] DCP has been formulated to minimize the risk of interference; however, potential interactions between rare sera and ingredients can occur. 2. For diagnostic purposes, the results obtained from this assay should always be used and interpreted in conjunction with clinical examination, patient medical history,and other findings. 3. It is recommended that this assay be used in conjunction with imaging studies for clinical diagnosis. 4. DCP producing tumors other than HCC can show elevated values of DCP. 5. Liver disease caused by other etiologies such as alcoholic liver disease, hemachromatosis, Rocky's disease, autoimmune hepatitis and steatohepatitis have not been studied with this assay. 6. Medication containing vitamin K preparations may cause a negative bias on the DCP values. 7. Medication containing vitamin K antagonists or antibiotic may cause a positive bias on the DCP values. 8. Values obtained with different assay methods or kits cannot be used interchangeably. Blood Structure of peripheral vein / Unknown Venipuncture / Unknown 09/18/2024 3:59 PM EDT 09/18/2024 4:06 PM EDT Oswaldo MCGOVERN - 09/24/2024 6:50 PM EDT [facility] Received Date:[id number] Ellis Romero MD LAB BLOOD ORDERABLES Final Re sult [facility]HEL[facility] [address] [facility] [address] [facility], [place] [address], [place] [phone] [employer]/[facility] [address] [place] [address], [place] [phone] * Hepatitis C RNA, Quantitative PCR w/Reflex to Genotype (09/18/2024 3:59 PM EDT) [facility] Hcv RNA, Quantitative Real Time PCR <15 NOT DETECTED NOT DETECTED IU/mL 09/19/2024 12:19 PM EDT [facility] Hcv RNA, Quantitative Real Time PCR <1.18 NOT DETECTED NOT DETECTED Log IU/mL 09/19/2024 12:19 PM EDT [facility] Comment: For additional information, please refer to http://education.Tripshare/faq/TVS25k8 (This link is being provided for informational/ Educational purposes only.) Blood Structure of peripheral vein / Unknown Venipuncture / Unknown 09/18/2024 3:59 PM EDT 09/18/2024 4:06 PM EDT Oswaldo [employer] SHANIQUA - 09/19/2024 12:19 PM EDT [facility] Received Date:[id number] Ellis Romero MD LAB BLOOD ORDERABLES Final Re sult [facility] [address] [facility] 3rd Floor, [place] [address], [place] [phone] [facility] [address] [facility] 3rd Floor, [place] [address], [place] [phone] * (ABNORMAL) CBC Auto Differential (09/18/2024 3:59 PM EDT) WBC 10.6 3.8 - 10.8 10*3/uL 09/18/2024 4:13 PM EDT [facility] RBC 4.74 3.80 - 5.10 10*6/uL 09/18/2024 4:13 PM EDT [facility] Hemoglobin 13.9 11.7 - 15.5 g/dL 09/18/2024 4:13 PM EDT [facility] Hematocrit 43.5 35.0 - 45.0 % 09/18/2024 4:13 PM EDT [facility] MCV 91.8 80.0 - 100.0 fL 09/18/2024 4:13 PM EDT [facility] MCH 29.3 27.0 - 33.0 pg 09/18/2024 4:13 PM EDT [facility] MCHC 32.0 32.0 - 36.0 g/dL 09/18/2024 4:13 PM EDT [facility] RDW 13.4 11.0 - 15.0 % 09/18/2024 4:13 PM EDT [facility] Platelets 146 140 - 400 10*3/uL 09/18/2024 4:13 PM EDT [facility] MPV 12.1 7.5 - 12.5 fL 09/18/2024 4:13 PM EDT [facility] Neutrophil % 58.2 % 09/18/2024 4:13 PM EDT [facility] Immature Grans % 0.4 0.0 - 0.9 % 09/18/2024 4:13 PM EDT [facility] Lymphocyte % 31.6 % 09/18/2024 4:13 PM EDT [facility] Monocyte % 8.5 % 09/18/2024 4:13 PM EDT [facility] Eosinophil % 0.7 % 09/18/2024 4:13 PM EDT [facility] Basophil % 0.6 % 09/18/2024 4:13 PM EDT [facility] Neutrophil # 6.20 1.50 - 7.80 10*3/uL 09/18/2024 4:13 PM EDT [facility] Immature Grans # 0.04(H) <=0.03 10*3/uL 09/18/2024 4:13 PM EDT [facility] Lymphocyte # 3.40 0.85 - 3.90 10*3/uL 09/18/2024 4:13 PM EDT [facility] Monocyte # 0.90 0.20 - 0.95 10*3/uL 09/18/2024 4:13 PM EDT [facility] Eosinophil # 0.10 0.02 - 0.50 10*3/uL 09/18/2024 4:13 PM EDT [facility] Basophil # 0.10 0.00 - 0.20 10*3/uL 09/18/2024 4:13 PM EDT [facility]ITALSt[facility] nRBC % 0.0 /100 WBCs 09/18/2024 4:13 PM EDT [facility]ITALSt[facility] nRBC # <0.01 <0.01 10*3/uL 09/18/2024 4:13 PM EDT [facility]ITALSt[facility]face[facility] Blood Structure of peripheral vein / Unknown Venipuncture / Unknown 09/18/2024 3:59 PM EDT 09/18/2024 4:06 PM EDT us Ellis Romero MD LAB BLOOD ORDERABLES Final Re sult [facility] [address] [place] [address], [place] * (ABNORMAL) Hepatitis A Antibody, Total (09/18/2024 3:59 PM EDT) Hepatitis A Ab, Total REACTIVE( A) NON-REACT BOBBY 09/18/2024 11:36 PM EDT [facility] Comment: For additional information, please refer to http://Compass-EOS.Tripshare/faq/IPM464 (This link is being provided for informational/ educational purposes only.) Blood Structure of peripheral vein / Unknown Venipuncture / Unknown 09/18/2024 3:59 PM EDT 09/18/2024 4:06 PM EDT Narrative [facility] - 09/18/2024 11:36 PM EDT [facility] Received Date:[id number] us Ellis Romero MD LAB BLOOD ORDERABLES Final Re sult Performing Organization Address [facility] Co de Phone Number [facility] [address], [place] [address], [employer] [facility] [address], [place] [address], [place] [phone] * Hepatitis B Surface Antibody (09/18/2024 3:59 PM EDT) Pathologist [facility] Hepatitis B Surface Ab Immunity, Qn 42 > OR = 10 mIU/mL 09/18/2024 10:57 PM EDT [facility] Comment: PATIENT HAS IMMUNITY TO HEPATITIS B VIRUS. For additional information, please refer to http://Compass-EOS.Tripshare/faq/ZDL968 (This link is being provided for informational/ educational purposes only). Blood Structure of peripheral vein / Unknown Venipuncture / Unknown 09/18/2024 3:59 PM EDT 09/18/2024 4:06 PM EDT Narrative [facility] IZZYLBOROUGH - 09/18/2024 10:57 PM EDT [facility] Received Date:[id number] us Ellis Romero MD LAB BLOOD ORDERABLES Final Re sult Performing Organization Address [facility]/ZIP Co de Phone Number MICHELLE [address], [place] [address], [place] [phone] [employer] [facility] [address] [facility] 3rd Floor, [place] [address], [place] [phone] * Protime-INR (09/18/2024 3:59 PM EDT) PT 11.4 9.6 - 12.4 Seconds 09/18/2024 4:30 PM EDT [facility] INR 1.0 0.9 - 1.1 09/18/2024 4:30 PM EDT [facility] Comment:The optimal therapeu tic INR range for patients treated with Vitamin K antagonists (VKAS, e.g., Warfarin) is 2.0 to 3.5. Discuss the desired range with your doctor/care team. Blood Structure of peripheral vein / Unknown Venipuncture / Unknown 09/18/2024 3:59 PM EDT 09/18/2024 4:06 PM EDT us Ellis Romero MD LAB BLOOD ORDERABLES Final Re sult [facility]ITALC[facility] [address] [place] [address], * (ABNORMAL) Comprehensive Metabolic Panel (09/18/2024 3:59 PM EDT) NA 141 135 - 145 mmol/L 09/18/2024 4:39 PM EDT [facility] K 3.6 3.5 - 5.3 mmol/L 09/18/2024 4:39 PM EDT [facility] [facility] Cl 105 98 - 107 mmol/L 09/18/2024 4:39 PM EDT [facility] [facility] CO2 26 22 - 32 mmol/L 09/18/2024 4:39 PM EDT [facility] [facility] Anion Gap 10 5 - 15 09/18/2024 4:39 PM EDT [facility] [facility] Glucose 127(H) 65 - 99 mg/dL 09/18/2024 4:39 PM EDT [facility] [facility] Creatinine 1.08 0.50 - 1.20 mg/dL 09/18/2024 4:39 PM EDT [facility] [facility] Calcium 9.8 8.6 - 10.5 mg/dL 09/18/2024 4:39 PM EDT [facility] [facility] Total Protein 8.0 6.0 - 8.0 g/dL 09/18/2024 4:39 PM EDT [facility] Albumin 3.9 3.5 - 5.2 g/dL 09/18/2024 4:39 PM EDT [facility] [facility] Bilirubin, Total 0.5 0.2 - 1.2 mg/dL 09/18/2024 4:39 PM EDT [facility] [facility] Alkaline Phosphatase 103 35 - 129 U/L 09/18/2024 4:39 PM EDT [facility] [facility] AST 29 10 - 40 U/L 09/18/2024 4:39 PM EDT [employer] [facility] ALT 20 10 - 40 U/L 09/18/2024 4:39 PM EDT [employer] [facility] BUN 15 7 - 23 mg/dL 09/18/2024 4:39 PM EDT [facility] [facility] eGFR 58(L) >=60 mL/min/1. 73m2 09/18/2024 4:39 PM EDT [facility] [facility] Comment:The estimated glomer ular filtration rate (eGFR) is calculated using a new formula developed by the NKF-ASN task force to eliminate race-based correction factors. The new formula uses serum/plasma creatinine, age, and gender to determine eGFR. A value below 60mls/min might indicate kidney disease and will be flagged. For additional information, see Kenzie et al, Am J Kidney Dis. 2021;79(2):268- 288, A Unifying Approach for GFR estimation: Recommendations of the NKF-ASN Task Force on Reassessing the Inclusion of Race in Diagnosing Kidney Disease . Globulin, Total 4.1 2.1 - 4.2 g/dL 09/18/2024 4:39 PM EDT [facility] [facility] A/G Ratio 1.0(L) 1.5 - 3.0 09/18/2024 4:39 PM EDT [facility]ITALUniversal BiosensorsLA [facility] Blood Structure of peripheral vein / Unknown Venipuncture / Unknown 09/18/2024 3:59 PM EDT 09/18/2024 4:04 PM EDT us Ellis Romero MD LAB BLOOD ORDERABLES Final Re sult [facility]ITALCryst[facility] [address] [place] [address], [place] from Last 3 Months [facility] Direct[facility] Documents on File Type Date Recorded Patient Geosciences Faculty Member Expl anation Health Care Proxy 10/21/2024 10:05 AM * Presumed Full Code (Latest Code Status on File) Date Activated Date Inactivated Comments 10/21/2024 1:42 PM 10/22/2024 5:38 PM Care Teams Dice Dealer Relationship Specialty Start Date End Date Chris Clement [facility] [place] [address] PCP - General Internal Medicine 09/10/24
--- OUTSIDE RECORDS SUMMARY | 2024-12-10 15:41 | XMS_ITS | Clinical Summary ---
Author Organization [facility] Address [address] [place] [address] Care Team Providers Care Fatback Trimmer Name Role Phone Unavailable Primary Care Provider Unavailabl e Encounters Date Type Department Care Team Description 09/16/2024 Population Health Risk Score [facility] (C3) Department [address] [facility] [address] [place] [address] Provider, Population Health Generic from Last 3 Months Social History Tobacco Use Types Packs/Day Years Used Date Smoking Tobacco: Never Assessed Comments Unknown Sex and Gender Information Value Date Recorded Sex Assigned at Not on file Legal Sex Female 9:22 PM EDT Gender Identity Not on file Sexual Orientation Not on file Plan of Treatment Health Maintenance Due Date Last Done Comments CT Colonography 1961 Colonoscopy 1961 Colorectal Cancer Screening 1961 Depression Screening 1961 FIT DNA/Cologuard 1961 FIT 1961 FOBT 1961 Lipid Panel 1961 SDOH Screening 1961 Sigmoidoscopy 1961 Disability Screening 1961 Alcohol/Substance Use Screening 1973 Tobacco Screening 1973 Hepatitis A Vaccines (1 of 2 - Risk 2-dose series) 1980 Pap Smear 1982 Cervical Cancer Screening 04/27/1991 HPV/Cotest 04/27/1991 Mammogram 2001 Hepatitis B Vaccines (1 of 3 - Risk 3-dose series) 2021 RSV Patients and Patients Aged 60 years or older (1 - Risk 60-74 years 1-dose series) 2021 COVID-19 Vaccine ( - season) 2024 01/13/2022, 04/15/2021 Influenza Vaccine (#1) 2024 , 12/22/2022, 12/26/2021, Additional history exists DTaP/Tdap/Td Vaccines (2 - Td or Tdap) 11/09/2027 11/08/2017 HIV Screening Completed 11/08/2017 Zoster Vaccines Completed 12/26/2021, 09/22/2021 Pneumococcal Vaccine: 50+ Years Completed 11/28/2023, 11/15/2018, 11/08/2017 HIB Vaccines Aged Out No longer eligi ble based on patient's age to complete this topic HPV Vaccines Aged Out No longer eligi ble based on patient's age to complete this topic IPV Vaccines Aged Out No longer eligi ble based on patient's age to complete this topic Meningococcal B Vaccine Aged Out No l onger eligible based on patient's age to complete this topic Meningococcal Vaccine Aged Out No chico griffin eligible based on patient's age to complete this topic RSV under 20 months Aged Out No longe r eligible based on patient's age to complete this topic Rotavirus Vaccines Aged Out No longer eligible based on patient's age to complete this topic
--- OUTSIDE RECORDS SUMMARY | 2024-12-10 15:41 | XMS_ITS ---
Author Organization [facility] Address [address] [place] [address] Care Team Providers Care Community Relations Manager Name Role Phone Clement Chris Kern Primary Care Provider [phone] Active Problems Problem Noted Date Diagnosed Date Hepatocellular carcinoma in adult 10/21/2024 Current Treatment and Therapy Plans No current plan information found. Past Treatment and Therapy Plans No past plan information found. Lifetime Dose Tracking * Chemical Lifetime Dose Automatic Entry Manual Entr y TotalDLP 425 mGy 425 mGy 0 mGy [id number] 7 mSv 7 mSv 0 mSv CTDIvol Max 13.5 mGy 13.5 mGy 0 mGy CTDIvol Min 13.5 mGy 13.5 mGy 0 mGy
== END 2024-12-10 12:57 | disposition home or self-care (01) ==
LOC: HO.RHES 12:24
PROVIDERS: PCP Internal Medicine; Visit Provider Student in an Organized Health Care Education/Training Program
DX: M79.7 Fibromyalgia (principal); M17.0 Bilateral primary osteoarthritis of knee
CPT/HCPCS: 99213

== ENCOUNTER → 2024-12-10 12:23 | Outpatient (BNVA) | payer MEDICAID, SELFPAY | PROVIDERS: PCP Internal Medicine; Visit Provider Student in an Organized Health Care Education/Training Program | DX: M17.0 Bilateral primary osteoarthritis of knee (principal); M79.7 Fibromyalgia; E66.01 Morbid (severe) obesity due to excess calories; Z68.42 Body mass index [BMI] 45.0-49.9, adult; Z72.0 Tobacco use | CPT/HCPCS: 99212 ==

== ENCOUNTER 2024-12-15 13:21 | Outpatient (REF) | payer MEDICAID, SELFPAY ==
[2024-12-15 18:28] LABS: MANUAL DIFF FLAG NO
[2024-12-15 18:38] LABS: Hematocrit 46.9 % (37.0-47.0); Hemoglobin 14.8 g/dl (12.0-16.0); Imm Gran Abs Auto 0.02 X10*3/uL (0.00-0.03); Imm Gran Pct Auto 0.3 % (0.0-0.4); Lymphocytes Absolute Auto 2.9 X10*3/uL (1.2-4.9); Mean Corpuscular HGB Conc 31.6 g/dl (31.0-35.0); Mean Corpuscular Hemoglobin 29.4 pg (27.0-33.0); Mean Corpuscular Volume 93.1 fL (80.0-98.0); NRBC Abs Auto 0.000 X10*3/uL (0.0-0.012); NRBC Pct Auto 0.0 /100WBC (0.0-0.2); Platelet Count 135 X10*3/uL (160-400); Red Blood Count 5.04 X10*6/uL (4.20-5.50); White Blood Count 7.9 X10*3/uL (4.8-10.8)
[2024-12-15 18:56] LABS: Alanine Aminotransferase 24 U/L (0-31); Albumin Level 4.0 g/dL (3.5-5.0); Alkaline Phosphatase 112 U/L (39-117); Anion Gap 11 (12-20); Aspartate Amino Transferase 28 U/L (5-31); Blood Urea Nitrogen 19 mg/dL (9-16); Calcium 9.9 mg/dL (8.4-10.2); Carbon Dioxide 28 mmol/L (22-29); Chloride 107 mmol/L (96-108); Estimated Glomerular Filt Rate > 60; Potassium 4.2 mmol/L (3.3-5.1); Sodium 142 mmol/L (135-145); Total Protein 8.0 g/dL (6.5-8.0)
== END 2024-12-15 13:22 | disposition home or self-care (01) ==
LOC: HO.HKASLDS 13:21
PROVIDERS: PCP Internal Medicine; Visit Provider Student in an Organized Health Care Education/Training Program
DX: M17.0 Bilateral primary osteoarthritis of knee (principal)
CPT/HCPCS: 36415; 80053; 85025

== ENCOUNTER 2025-01-15 12:40 | Outpatient (REF) | payer MEDICAID, SELFPAY ==
--- NOTE | ~2025-01-15 | XR_ITS ---
EXAMINATION: XR KNEE, RIGHT CLINICAL INFORMATION: M25.561 - Pain in right knee COMPARISON: 01/30/2022 TECHNIQUE: AP standing, lateral and sunrise of the right knee. FINDINGS: There is varus deformity and mild medial subluxation of femur in the joint line. There is severe narrowing of the medial compartment with subchondral sclerosis in the medial compartment increased from the prior. There are tricompartmental marginal osteophytes. There is a joint effusion., Slightly increased from the prior. XR/XR knee RT 3V IMPRESSION: Severe osteoarthritis with varus deformity and joint effusion, mildly progressed since the prior. Electronically signed by: Gera Liu MD 01/15/2025 01:20 PM [facility]
--- NOTE | ~2025-01-15 | XR_ITS ---
EXAMINATION: XR KNEE, LEFT CLINICAL INFORMATION: M25.562 - Pain in left knee COMPARISON: 01/30/2022 TECHNIQUE: AP standing, lateral, and sunrise views of the left knee. FINDINGS: There is moderate narrowing of the medial joint space, slightly more advanced than on the prior. There is mild subluxation of distal femur in the joint line. There are tricompartmental marginal osteophytes, increased since the prior. There is varus deformity. There is a joint effusion, increased from the prior. XR/XR knee LT 3V IMPRESSION: Moderate to severe osteoarthritis with joint effusion and varus deformity, mildly progressed since the prior. Electronically signed by: Gera Liu MD 01/15/2025 01:23 PM [facility]
--- OUTSIDE RECORDS SUMMARY | 2025-01-15 18:27 | XMS_ITS ---
Author Organization [facility] Address [address] [place] [address] Care Team Providers Care Boating Safety Officer Name Role Phone Clement Chris Kern Primary Care Provider [phone] Active Problems Problem Noted Date Diagnosed Date Hepatocellular carcinoma in adult 10/21/2024 Current Treatment and Therapy Plans No current plan information found. Past Treatment and Therapy Plans No past plan information found. Lifetime Dose Tracking * Chemical Lifetime Dose Automatic Entry Manual Entr y TotalDLP 425 mGy 425 mGy 0 mGy [id number] 7 mSv 7 mSv 0 mSv CTDIvol Max 13.5 mGy 13.5 mGy 0 mGy CTDIvol Min 13.5 mGy 13.5 mGy 0 mGy
--- OUTSIDE RECORDS SUMMARY | 2025-01-15 18:27 | XMS_ITS | Data Portability ---
Author Organization [place] - Pending sale to [facility], [facility] Address [address] [place] [address] Care Team Providers Care Machine Pan Greaser Name Role Phone TENA KENT Primary Care Provider CONNIE RAMON OTHER Assessment Encounter Date Assessment Date Assessment LastModified by Organization Details LastModified Time 07/11/2021 07/11/2021 Overview/History : Ms. Parker is a 61-year-old female with a history of mild to moderate persistent allergic phenotype asthma diagnosed by positive methacholine challenge test, HCV cirrhosis, fibromyalgia, GERD and history of tobacco use. She complains of dysuria which is chronic one year pungent odor, and hematuria. She also complains of liliam CVA tenderness. She completed Macrobid on 06/23 which was prescribed by urologist . She had a CT scan on 07/04/21 ordered by with IMPRESSION: 1. Cystitis. 2. Nonobstructing bilateral nephrolithiasis. 3. Cirrhotic liver. Exam: Very pleasant, female sitting in couch conversing with staff and answering all questions appropriately. No acute distress, neurologically intact, EOMI, Respirations even and nonlabored, bilateral breath sounds clear to auscultation. Liliam CVA tenderness. Bi lower non pitting trace edema. DDx considered, but not limited to: Acute UTI, acute cystitis, complicated UTI, renal or ureteral stone Work up/Results:UA C&S pending. Plan/Discussion: -Patient with history of UTI which was treated on 06/17 with Macrobid which she states she completed (empty bottle visualized). Despite abx treatment she continues to experience UTI symptoms. CT scan done on 07/04 reveals cystitis and nonobstructing bilateral nephrolithiasis, which can explain liliam CVA tenderness. She was not treated for cystitis after CT scan finding. UA C&S pending and will contact patient with findings and treat appropriately. In order to obtain further information and compare any laboratory results/values, I have accessed [facility] to review recent imaging. This information was pertinent in my medical decision making today. [email or web address] Not available 07/11/2021 12:37:43 Plan of Treatment Reminders Order Date Submit Date Provider Last Modified By Organization Details Last Modified Time Details Appointments None recorded. Lab unlisted lab - urinalysis w/reflex culture 2021 022 [email or web address] [facility] (Centralized Electronic Ordering - All Locations), Patient Can Go To The Location Of Their Choice, [id number] 02:11:45 Referral None recorded. Procedures None recorded. Surgeries None recorded. Imaging None recorded. Medication Orders None recorded. Patient TargetsNo targets recorded. Patient Instructions Encounter Date Encounter Id Patient Instructions Last Modified By Organization Details Last Modified Time 07/11/2021 [id number] painful urinatio n (dysuria): care instructions [email or web address] [id number] Not available 07/11/2021 10:48:54 BASIC INFORMATIO N Urinary tract infections(UTI) can involve any portion of the urinary tract. The most common presentation is a bladder infection/cystitis, which usually presents with urinary frequency, burning with urination, urgency, foul smelling cloudy urine and occasionally blood. Kidney infections are less frequent, but more serious, and present with fever, flank pain, malaise and sometimes shaking chills. UTI s are common in women because of the female anatomy, and much less common in males. INSTRUCTIONS Drink plenty of fluid, water is best. Drinking fluids will help to flush the bacteria from your body. Urinate every 2-3 hours Wear cotton underwear and avoid Nylon, Spandex and Lycra which tend to trap moisture and thong underwear which may facilitate UTI s . Avoid tub baths Avoid using Super Tampons Use only mild unscented soap to wash your genitals, such as Dove or Ivory, avoid heavily scented body washes. If you are sexually active urinate as soon as possible after intercourse. Yogurt and probiotics may help to establish a more healthy genital environment, and aid in prevention. MEDICATIONS 1.Antibiotics: Usually prescribed if you have a UTI, there are many different effective antibiotics available. It is important that you complete the course of antibiotics you are given. You should feel some improvement within 24-48 hours, if you do not it may be that the bacteria causing your infection is resistant to the prescribed medication. If a urine culture is obtained it will usually take at least 3-4 days to get the final result. 2. Anesthetic/Pain relievers: Phenazopyridine (Pyridium, Uribelle, AZO) is an anesthetic excreted in the urine. This medicine will turn your urine BRIGHT ORANGE! This is normal, and may stain your underwear can contacts. Take this medication as directed with food. 3. Tylenol and Ibuprofen can be helpful for the pain, fever and body aches that can be associated with a kidney infection. Please follow recommended dosing instructions on the bottle. FOLLOW UP 1. If your symptoms are not improving in 24-48 hours 2. If your symptoms are getting more severe 3. Any unusual vaginal discharge 4. Symptoms recur after you complete medication SEEK CARE IMMEDIATELY IF 1.You have shaking chills or temperature over 101.5 2. Severe flank pain 3. Persistent vomiting, unable to keep fluids or medicine down. 4. Worse despite medication. If you develop any new or worsening symptoms and need after hours care, please go to nearest ER and/or call 911. If you have additional concerns or develop a change in your condition between 8am-10pm, please call [facility] at [phone] to help navigate your care. [email or web address] 3 Not available 07/11/2021 10:31:03 Reason for Referral None Reported. Results Created Date Observation Date Name Description Value Unit Range Abnormal Flag Note LastModifiedBy Organization Detail LastModifiedTime 07/12/1907/12/2021 UA W/REF ELIS CULTU RE appear/color YELLO W TURBI D Not Available [facility] (Centralized Electronic Ordering - All Locations) Patient Can Go To The Location Of Their Choice, 07/12/2021 02:11:45 07/12/1907/12/2021 UA W/REF ELIS CULTU RE sp. gravity 1.018 (1.002 -1.030 ) Not Available [facility] (Centralized Electronic Ordering - All Locations) Patient Can Go To The Location Of Their Choice, 07/12/2021 02:11:45 07/12/1907/12/2021 UA W/REF ELIS CULTU RE urine pH 6.0 (5.0-8 .0) Not Available [facility] (Centralized Electronic Ordering - All Locations) Patient Can Go To The Location Of Their Choice, 07/12/2021 02:11:45 07/12/19 22 07/12/2021 UA W/REF ELIS CULTU RE urine albumin TRACE (neg) abnormal Not Available [facility] (Central[facility] Ordering - All Locations) Patient Can Go To The Location Of Their Choice, 07/12/2021 02:11:45 07/12/1907/12/2021 UA W/REF ELIS CULTU RE urine glucose NEGATI VE (neg) Not Available [facility] (Centralized Electronic Ordering - All Locations) Patient Can Go To The Location Of Their Choice, 07/12/2021 02:11:45 07/12/1907/12/2021 UA W/REF ELIS CULTU RE urine ketones NEGATI VE (neg) Not Available [facility] (Centralized Electronic Ordering - All Locations) Patient Can Go To The Location Of Their Choice, 07/12/2021 02:11:45 07/12/1907/12/2021 UA W/REF ELIS CULTU RE urine bilirubin NEGATI VE (neg) Not Available [facility] (Centralized Electronic Ordering - All Locations) Patient Can Go To The Location Of Their Choice, 07/12/2021 02:11:45 07/12/1907/12/2021 UA W/REF ELIS CULTU RE urine hemoglobin NEGATI VE (neg) Not Available [facility] (Centralized Electronic Ordering - All Locations) Patient Can Go To The Location Of Their Choice, 07/12/2021 02:11:45 07/12/1907/12/2021 UA W/REF ELIS CULTU RE urine nitrite NEGATI VE (neg) Not Available [facility] (Centralized Electronic Ordering - All Locations) Patient Can Go To The Location Of Their Choice, 07/12/2021 02:11:45 07/12/1907/12/2021 UA W/REF ELIS CULTU RE urine leukocyte 3+ (neg) abnormal Not Available [facility] ([facility] Ordering - All Locations) Patient Can Go To The Location Of Their Choice, 07/12/2021 02:11:45 07/12/1907/12/2021 UA W/REF ELIS CULTU RE urobilinogen NORMAL mg/dL (norm) Not Available [facility] ([facility] Order[facility] - All Locations) Patient Can Go To The Location Of Their Choice, 07/12/2021 02:11:45 07/12/1907/12/2021 UA W/REF ELIS CULTU RE urine WBCs 58 /hpf (0-5) high Not Available [facility] (Centralized Electronic Ordering - All Locations) Patient Can Go To The Location Of Their Choice, 07/12/2021 02:11:45 07/12/1907/12/2021 UA W/REF ELIS CULTU RE urine RBCs 1 /hpf (0-3) Not Available [facility] (Centralized Electronic Ordering - All Locations) Patient Can Go To The Location Of Their Choice, 07/12/2021 02:11:45 07/12/1907/12/2021 UA W/REF ELIS CULTU RE bacteria SLIGHT hpf (neg) abnormal Not Available [facility] (Centralized Electronic Ordering - All Locations) Patient Can Go To The Location Of Their Choice, 07/12/2021 02:11:45 07/12/1907/12/2021 UA W/REF ELIS CULTU RE mucus SLIGHT /lpf Not Available [facility] (Centralized Electronic Ordering - All Locations) Patient Can Go To The Location Of Their Choice, 07/12/2021 02:11:45 07/12/1907/12/2021 UA W/REF ELIS CULTU RE squamous epith 13 /hpf (0-8) high Not Available [facility] (Central[facility] Ordering - All Locations) Patient Can Go To The Location Of Their Choice, 07/12/2021 02:11:45 07/12/1907/12/2021 UA W/REF ELIS CULTU RE calcium oxalate crystal MODERA TE /hpf Not Available [facility] (Centralized Electronic Ordering - All Locations) Patient Can Go To The Location Of Their Choice, 07/12/2021 02:11:45 07/12/1907/12/2021 UA W/REF ELIS CULTU RE clarity TURBID (clear ) abnormal Not Available [facility] (Centralized Electronic Ordering - All Locations) Patient Can Go To The Location Of Their Choice, 07/12/2021 02:11:45 07/12/1907/12/2021 UA W/REF ELIS CULTU RE culture indication CULTUR E INDICA GARNT Not Available [facility] (Centralized Electronic Ordering - All Locations) Patient Can Go To The Location Of Their Choice, 07/12/2021 02:11:45 07/12/1907/12/2021 URINE CULTU RE specimen description URINE Not Available [facility] ([facility] Order[facility] - All Locations) Patient Can Go To The Location Of Their Choice, 07/14/2021 07:26:18 07/12/1907/12/2021 URINE CULTU RE special requests NONE Reflex ed from [id number] 3 Not Available [facility] (Centralized Electronic Ordering - All Locations) Patient Can Go To The Location Of Their Choice, 07/14/2021 07:26:18 07/12/1907/14/2021 URINE CULTU RE culture abnormal 10-50 ,000 COL/M L ESCHE ANNA A COLI This isola te was ident ified using Maldi -TOF syste m These AST resul ts were perfo rmed on the Micro scan ID and AST syste m Not Available [facility] (Centralized Electronic Ordering - All Locations) Patient Can Go To The Location Of Their Choice, 07/14/2021 07:26:18 07/12/1907/14/2021 URINE CULTU RE report status FINAL 2021 Not Available [facility] (Centralized Electronic Ordering - All Locations) Patient Can Go To The Location Of Their Choice, 07/14/2021 07:26:18 07/12/1907/14/2021 URINE CULTU RE organism ORGAN ISM 10-50 ,000 COL/M L ESCHE ANNA A COLI This isola te was ident ified using Maldi -TOF syste m Not Available [facility] (Centralized Electronic Ordering - All Locations) Patient Can Go To The Location Of Their Choice, 07/14/2021 07:26:18 07/12/1907/14/2021 URINE CULTU RE method METHOD MIN. INHIB. CONC. (MCG/M L) Not Available [facility] (Centralized Electronic Ordering - All Locations) Patient Can Go To The Location Of Their Choice, 07/14/2021 07:26:18 07/12/1907/14/2021 URINE CULTU RE ampicillin AMPICI LLIN RESIST ANT resistant Not Available [facility] (Centralized Electronic Ordering - All Locations) Patient Can Go To The Location Of Their Choice, 07/14/2021 07:26:18 07/12/1907/14/2021 URINE CULTU RE ampicillin/s ulbactam AMPICI LLIN/S ULBACT AM INTERM EDIATE intermedi ate Not Available [facility] (Centralized Electronic Ordering - All Locations) Patient Can Go To The Location Of Their Choice, 07/14/2021 07:26:18 07/12/1907/14/2021 URINE CULTU RE amoxicillin/ clavulanic acid AMOXIC ILLIN/ CLAVUL AN SUSCEP TIBLE susceptib le Not Available [facility] (Centralized Electronic Ordering - All Locations) Patient Can Go To The Location Of Their Choice, 07/14/2021 07:26:18 07/12/1907/14/2021 URINE CULTU RE cefazolin CEFAZO BATOOL SUSCEP TIBLE susceptib le Not Available [facility] (Centralized Electronic Ordering - All Locations) Patient Can Go To The Location Of Their Choice, 07/14/2021 07:26:18 07/12/1907/14/2021 URINE CULTU RE cefepime CEFEPI ME SUSCEP TIBLE susceptib le Not Available [facility] (Centralized Electronic Ordering - All Locations) Patient Can Go To The Location Of Their Choice, 07/14/2021 07:26:18 07/12/1907/14/2021 URINE CULTU RE ceftriaxone CEFTRI AXONE SUSCEP TIBLE susceptib le Not Available [facility] (Centralized Electronic Ordering - All Locations) Patient Can Go To The Location Of Their Choice, 07/14/2021 07:26:18 07/12/1907/14/2021 URINE CULTU RE ciprofloxaci n CIPROF LOXACI N SUSCEP TIBLE susceptib le Not Available [facility] (Centralized Electronic Ordering - All Locations) Patient Can Go To The Location Of Their Choice, 07/14/2021 07:26:18 07/12/19 22 07/14/2021 URINE CULTU RE ertapenem ERTAPE NEM SUSCEP TIBLE susceptib le Not Available [facility] (Centralized Electronic Ordering - All Locations) Patient Can Go To The Location Of Their Choice, 07/14/2021 07:26:18 07/12/19 22 07/14/2021 URINE CULTU RE gentamicin GENTAM ICIN SUSCEP TIBLE susceptib le Not Available [facility] (Centralized Electronic Ordering - All Locations) Patient Can Go To The Location Of Their Choice, 07/14/2021 07:26:18 07/12/19 22 07/14/2021 URINE CULTU RE levofloxacin LEVOFL OXACIN SUSCEP TIBLE susceptib le Not Available [facility] (Centralized Electronic Ordering - All Locations) Patient Can Go To The Location Of Their Choice, 07/14/2021 07:26:18 07/12/1907/14/2021 URINE CULTU RE meropenem MEROPE NEM SUSCEP TIBLE susceptib le Not Available [facility] (Centralized Electronic Ordering - All Locations) Patient Can Go To The Location Of Their Choice, 07/14/2021 07:26:18 07/12/1907/14/2021 URINE CULTU RE nitrofuranto in NITROF URANTO IN SUSCEP TIBLE susceptib le Not Available [facility] (Centralized Electronic Ordering - All Locations) Patient Can Go To The Location Of Their Choice, 07/14/2021 07:26:18 07/12/1907/14/2021 URINE CULTU RE piperacillin /tazobactam PIPERA CILLIN /TAZOB AC SUSCEP TIBLE susceptib le Not Available [facility] (Centralized Electronic Ordering - All Locations) Patient Can Go To The Location Of Their Choice, 07/14/2021 07:26:18 07/12/1907/14/2021 URINE CULTU RE trimeth/sulf amethox TRIMET H/SULF AMETHO X RESIST ANT resistant Not Available [facility] (Centralized Electronic Ordering - All Locations) Patient Can Go To The Location Of Their Choice, 07/14/2021 07:26:18 07/12/1907/14/2021 URINE CULTU RE tetracycline TETRAC YCLINE SUSCEP TIBLE susceptib le Not Available [facility] ([facility]ized Electronic Ordering - All Locations) Patient Can Go To The Location Of Their Choice, [id number] 07/14/2021 07:26:18 Result Notes None recorded. Procedures Surgical History Date Name Laterality Status Provider Name and Address Organization Details Recorded Time Carpal tunnel surgery completed Juliana Isaac, N[facility] [address], [place], [address], [place] [facility] 07/11/2021 10:37:50 Imaging Results None recorded. Procedure Notes None recorded. Medical Equipment None Reported. Allergies Allergen ID Allergen Name Allergen Category Reaction Reaction Severity Criticality Documentation Date Start Date Code Code System Note Provider Name and Address Organization Details Recorded Time 913905 gabapenti n medicatio n Not available Not available Not available 07/11/2021 60283 RxNorm Juliana NGA Gray [address], [place], [address], [place] [facility] 2 10:31:41 [id number] Non-stero idal anti-infl ammatory agent (substanc e) medicatio n Not available Not available Not available 07/11/2021 68905 5008 SNOMED Juliana NGA Gray [address], [place], [address], [place] [facility] 2 10:31:48 Medications Name Sig Start Date Stop Date Status Note LastModified by Organization Details LastModified Time cyclobenzap rine 10 mg tablet TAKE 1 TABLET BY MOUTH 2 TIMES DAILY NEEDED (MUSCLE PAIN). active Not Available Not Available No t Available montelukast [address] 1 TAB INTO MOUTH, CHEW AND SWALLOW NIGHTLY AT BEDTIME active Not Available Not Available No t Available prednisone 10 mg tablet 4 TABS DAILY FOR 2 DAYS, THEN 3 TABS DAILY X 2 DAYS, THEN 2 TABS DAILY X 2 DAYS, THEN 1 TAB X 2 DAYS 07/11 completed Not Available Not Available Not Available ipratropium 0.5 mg-albutero l 3 mg (2.5 mg base)/3 mL nebulizatio n soln USE 1 VIAL VIA NEBULIZER EVERY 6 HOURS NEEDED FOR WHEEZE/ SHORTNESS OF BREATH active Not Available Not Available No t Available ondansetron HCl 4 mg tablet TAKE 1 TABLET BY MOUTH EVERY 8 HOURS NEEDED FOR NAUSEA AND VOMITING active Not Available Not Available No t Available prednisone 20 mg tablet TAKE 2 TABLETS BY MOUTH EVERY DAY FOR 7 DAYS 07/11 completed Not Available Not Available Not Available clonazepam 0.5 mg tablet TAKE 1 TABLET BY MOUTH TWICE A DAY active Not Available Not Available No t Available sulfamethox azole 800 mg-trimetho prim 160 mg tablet TAKE 1 TABLET BY MOUTH TWICE A DAY. active Not Available Not Available No t Available tolterodine 2 mg tablet TAKE 1 TABLET BY MOUTH TWICE A DAY active Not Available Not Available No t Available phenazopyri dine 100 mg tablet TAKE 1 TABLET BY MOUTH THREE TIMES A DAY WITH MEALS active Not Available Not Available No t Available lansoprazol e 30 mg capsule,del ayed release TAKE 1 CAPSULE BY MOUTH EVERY DAY active Not Available Not Available No t Available Advair Diskus 500 mcg-50 mcg/dose powder for inhalation INHALE 1 PUFF BY MOUTH TWICE A DAY active Not Available Not Available No t Available ergocalcife rol (vitamin D2) 1,250 mcg (50,000 unit) capsule TAKE 1 CAPSULE BY MOUTH ONCE WEEKLY active Not Available Not Available No t Available ibuprofen 600 mg tablet TAKE 1 TABLET BY MOUTH 4 (FOUR) TIMES DAILY NEEDED FOR PAIN 07/11 completed Not Available Not Available Not Available estradiol 0.01% (0.1 mg/gram) vaginal cream USE DIRECTED: 1 GRAM PER VAGINA 3X PER WEEK active Not Available Not Available No t Available amoxicillin 875 mg-potassiu m clavulanate 125 mg tablet TAKE 1 TABLET BY MOUTH TWICE A DAY 07/11 completed Not Available Not Available Not Available aripiprazol e 10 mg tablet TAKE 1 TABLET BY MOUTH EVERY MORNING active Not Available Not Available No t Available nitrofurant oin monohydrate /macrocryst als 100 mg capsule TAKE 1 CAPSULE BY MOUTH EVERY 12 HOURS FOR 7 DAYS active Not Available Not Available No t Available duloxetine 30 mg capsule,del ayed release TAKE 1 CAPSULE BY MOUTH EVERY MORNING active Not Available Not Available No t Available lactulose 10 gram/15 mL oral solution TAKE 30 ML BY MOUTH 2 TIMES DAILY NEEDED FOR CONSTIPAT ION. active Not Available Not Available No t Available ProAir HFA 90 mcg/actuati on aerosol inhaler INHALE 2 PUFFS 4 TIMES A DAY NEEDED FOR WHEEZING ( DOING PA) active Not Available Not Available No t Available Symbicort 160 mcg-4.5 mcg/actuati on HFA aerosol inhaler INHALE 2 PUFFS INTO THE LUNGS TWICE A DAY. RINSE MOUTH AND THROAT AFTER USE. IN THE AM AND PM 07/11 completed Not Available Not Available Not Available cholecalcif chelsea (vitamin D3) 1,250 mcg (50,000 unit) capsule TAKE 1 TABLET BY MOUTH ONE TIME PER WEEK active Not Available Not Available No t Available Spiriva Respimat 1.25 mcg/actuati on solution for inhalation INHALE 2 PUFFS DAILY active Not Available Not Available No t Available Vitals Date Recorded Heart rate Respiratory rate Oxygen saturation Body temperature Systolic And Diastolic Provider Name and Address Organization Details Last Updated DateTime 96 /min 16 /min 96 % 98.6 [degF] 130/70 mm[Hg] Not Available [facility] 10:29:44 Social History Question Answer Notes LastModified by Organizat ion Details LastModified Time Tobacco Smoking Status Former Smoker August NGA Gray [address], [place], [address], [place] - [facility] 07/11/2021 10:36:40 Within The Past 12 Months, Has It Happened That The Food You Bought Just Didn't Last And You Didn't Have Money To Get More. No [email or web address] Information not available 07/11/2021 Within The Past 12 Months, Have You Worried That Your Food Would Run Out Before You Got Money To Buy More. No [email or web address] Information not available 07/11/2021 Fall Risk: Do You Feel Unsteady When Standing Or Walking? No [email or web address] Information not available 07/11/2021 Excessive Alcohol Or Drug Use No [email or web address] Information not available 07/11/2021 Does This Patient Have A PCP? Yes [email or web address] Information not available 07/11/2021 Has The Patient Seen Their PCP In The Past 6 Months? Yes [email or web address] Information not available 07/11/2021 We Know From Many Of Our Patients That Covering All Of Their Costs Can Be Difficult At Times. This Can Cause Stress And Impact Health. In The Past Year, Have You Been Unable To Get Any Of The Following When It Was Really Needed? No [email or web address] Information not available 07/11/2021 What Is Your Housing Situation Today? I Have Housing [email or web address] Information not available 07/11/2021 How Many Years Have You Smoked Tobacco? 30 [email or web address] Information not available 07/11/2021 Sex: Unknown Functional Status Question Answer Note LastModified by Organizat ion Details LastModified Time Do you use any illicit or recreational drugs? No [email or web address] Information not available 07/11/2021 Do you or have you ever used any other forms of tobacco or nicotine? No [email or web address] Information not available 07/11/2021 What is your level of alcohol consumption? None [email or web address] Information not available 07/11/2021 Mental Status None recorded. Family History Nothing Reported. Medical History Condition Response Diabetes N Coronary Artery Disease N CHF N Parkinson's Disease N Cancer N Stroke N Dementia N Hypothyroidism N COPD N Asthma Y Depression N High Cholesterol N Rheumatoid Arthritis N Pulmonary Embolism N Hypertension N A-fib N Osteoporosis N Kidney Disease N Gynecological HistoryNo gynecological history recorded. Obstetrics History GPAL:G 0 P 0 0 0 0 Past Encounters Encounter ID Performer Location Encounter Start Date Encounter Closed Date Diagnosis/Indication Diagnosis SNOMED-CT Code Diagnosis ICD10 Code Diagnosis IMO Codes Diagnosis Note [id number] [facility] [place] [facility] [address] 07/11/2021 10:19:33 07/12/2021 11:35:50 Dysuria 50141956 R30.9 Acute cystitis 08997329 N30.01 Health Concerns Section Related Observation LastModified by Organization Detai ls LastModified Time None Recorded Concern Status LastModified by Organization Details LastModified Time None Recorded Advance Directives Directive None Recorded Payers Insurance Date Sequence Insurance Name Policy Number Policy Gaming Covered Member ID Gaming Member ID Guarantor Name 07/08/2021 1 [place] [facility] Alma Parker [id number] Almara Parker 07/08/2021 1 [place] [facility] Alma Parker [id number] Alma Parker 07/08/[address] [place] [address] [facility]MEDICAID HMO) Alma Parker [id number] Alma Parker 07/18/2021 1 [facility] [id number] Alma Parker [id number] Alma Parker 07/08/2021 1 [facility] Alma Parker [id number] Alma Parker 07/08/2021 1 *SELF PAY* Alma Parker [id number] Alma Basurtoarez 07/12/2021 2 [place] [facility] Alma Parker [id number] Alma Parker 07/08/2021 2 [facility] Alma Parker [id number] Alma Basurtoarez Notes Date Note Type Note Provider Name and Address Organization Details Recorded Time 07/11/2021 text/html General HPI Temp late - DHReported by Patient Ms. Pakrer is a 61-year-old female with a history of mild to moderate persistent allergic phenotype asthma diagnosed by positive methacholine challenge test, HCV cirrhosis, fibromyalgia, GERD and history of tobacco use. She complains of dysuria which is chronic one year pungent odor, and hematuria. She also complains of liliam CVA tenderness. She completed Macrobid on 06/23 which was prescribed by urologist . She had a CT scan on 07/04/21 ordered by withIMPRESSION:1. Cystitis.2. Nonobstructing bilateral nephrolithiasis.3. Cirrhotic liver. August [facility] [address], [place], [address], [place] - [facility] 07/11/2021 12:38:41 OBGyn Episode No OBEpisode recorded.
--- OUTSIDE RECORDS SUMMARY | 2025-01-15 18:27 | XMS_ITS | Clinical Summary ---
Author Organization [facility] Address [address] [place] [address] Care Team Providers Care Legislative Correspondent Name Role Phone Chris Clement Primary Care Provider [phone] Allergies Active Allergy Reactions Criticality Noted Date [...] Encounters Date Type Department Care Team Description 12/11/2024 3:00 PM EDT Follow-Up [facility] [address] [place] [address] Ellis Romero MD Hepatocellular carcinoma in adult (Primary Dx); Other cirrhosis of liver 12/11/2024 HCC Committee Review [facility] [address] [place] [address] Kelly Maosn NP 11/27/2024 Orders Only External Imaging [address] [place] [address] Radiology, External 10/30/2024 Orders Only [facility] [address] [place] [address] Kelly Mason NP Hepatocellular carcinoma in adult (HCC) (Primary Dx) 10/23/2024 Telephone [facility] Interventional Radiology [address] [place] [address] Lana KanTHOMAS 10/21/2024 2:37 PM EDT - 10/22/2024 3:33 PM EDT Hospital Encounter [facility] [address] [place] [address] Ellis Romero MD Appleton Figueira, Tomas Manuel, MD Camann, Zachary A, MD Ciaramella, Alexander, MD HCC (hepatocellular carcinoma) (HCC) Discharge Disposition: Home or Self Care () 10/21/2024 11:38 AM EDT Anesthesia Event [facility] [address] [place] [address] Sohail Milligan MD from Last 3 Months Immunizations Immunization Administration Dates Next Due INFLUENZA, SPLIT VIRUS, TRIVALENT, PF 12/11/2024 Influenza, Injectable, Madin [place] Canine Kidney, Quadrivalent 11/26/2019,12/12/2017 Influenza, Injectable, Quadr ivalent, Preservative Free 12/22/2022,12/26/2021,12/09/2020,11/15,12/12/2017 Pneumococcal Conjugate Vacci ne, 13 Valent 11/08/2017 Pneumococcal Polysaccharide Vaccine, 23 Valent 11/15/2018 Pneumococcal conjugate PCV20,polysaccharide RUO035 conjugate, adjuvant, PF (Prevnar 20) 11/28/2023 Seasonal, Trivalent, Recombi nant, Injectable Influenza Vaccine, Preservative Free (Flublok) 11/28/2023 Tetanus Toxoid, Reduced Diph theria Toxoid, and Acellular Pertussis Vaccine, Adsorbed 11/08/2017 Zoster Vaccine Recombinant 12/26/2021,09/22/2021 Family History Medical History Relation Name Comments [...] Sign Reading Time Taken Comments Blood Pressure 90/56 12/11/2024 2:34 PM EDT Pulse 93 12/11/2024 2:34 PM EDT Temperature 36.3 C (97.4 F) 12/11/2024 2:34 PM EDT Respiratory Rate 18 12/11/2024 2:34 PM EDT Oxygen Saturation 96% 12/11/2024 2:34 PM EDT Inhaled Oxygen Concentration - - Weight 106 kg (233 lb 11 oz) 12/11/2024 2:34 PM EDT Height 149.9 cm (4' 11 ) 10/02/2024 10:57 AM EDT Body Mass Index 47.2 10/02/2024 10:57 AM EDT Plan of Treatment Upcoming Encounters Date Type Department Care Team (Late st Contact Info) Description 03/12/2025 3:00 PM EST Follow-Up [facility] [address], [place] [id number] Ellis Romero MD [address] [place] [address] Health Maintenance Due Date Last Done Comments Cervical Cancer Screening 1960 Cologuard 1960 Colon Cancer Screening 1960 Colonoscopy 1960 FOBT / Fit Test 1960 HPV and Pap Smear 1960 Pap Smear 1960 Sigmoidoscopy 1960 Mammogram 2001 RSV Vaccine (60+ years old a nd patients) (1 - Risk 50-74 years 1-dose series) 04/27/2011 Hepatitis B Vaccines (1 of 3 - Risk 3-dose series) 2021 Alcohol/Substance Use Screening 02/27/2024 Depression Screening and Follow-Up 02/27/2024 Social Drivers of Health Jane ual Screening 02/27/2024 COVID-19 Vaccine (5 - 2024-2 6 season) 2024 01/13/2022, 04/15/2021, 06/15/2020, Additional history exists CT Lung Cancer Screening (Baseline) 10/02/2025 10/02/2024 DTaP,Tdap,and Td Vaccines (2 - Td or Tdap) 11/09/2027 11/08/2017 Diabetes Screening 12/12/2027 12/11/2024, 0 09/18/2024, 08/04/2024, Additional history exists HIV Screening Completed 11/08/2017 Zoster Vaccines Completed 12/26/2021, 09/22/2021 Pneumococcal Vaccine: 50+ Years Completed 11/28/2023, 11/15/2018, 11/08/2017 Influenza Vaccine Completed 12/11/2024, , 12/22/2022, Additional history exists Procedures * Due to [place] state law, this organization might not be sharing negative HIV tests. Procedure Name Priority Date/Time Associated Diagnosis Comments ALPHA-FETOPROTEIN (AFP) AND AFP-L3 -[id number] Routine 12/11/2024 1:27 PM EDT Hepatocellular carcinoma in adult COMPREHENSIVE METABOLIC PANEL Routine 12/11/2024 1:27 PM EDT Hepatocellular carcinoma in adult PROTIME-INR Routine 12/11/2024 1:27 PM EDT Hepatocellular carcinoma in adult CBC AUTO DIFFERENTIAL Routine 12/11/2024 1:27 PM EDT Hepatocellular carcinoma in adult MRI ABDOMEN W WO CONTRAST Routine 11/27/2024 3:00 PM EDT Hepatocellular carcinoma in adult AMB EXTERNAL MRI ABDOMEN, OUTSIDE RESULT 11/27/2024 CT ABLATION (RF) LIVER TUMOR PERCUTANEOUS Routine 10/21/2024 2:16 PM EDT HCC (hepatocellular carcinoma) (HCC) CT CHEST WO CONTRAST Routine 10/02/2024 11:50 AM EDT HCC (hepatocellular carcinoma) (HCC) from Last 3 Months or Most Recently Relevant to Health Maintenance Results * Due to [place] state law, this organization might not be sharing negative HIV tests. * (ABNORMAL) Alpha-Fetoprotein (AFP) and AFP-L3 (12/11/2024 1:27 PM EDT) AFP 6.4(H) 1.6 - 4.5 ng/mL 12/16/2024 4:46 PM EDT [facility] AFP-L3 6.9 0.5 - 9.9 % 12/16/2024 4:46 PM EDT [facility] Comment: The micro-total analysis system (uTASWako) employs microchip capillary electrophoresis to quantitatively measure AFP and AFP-L3% by immunochemical techniques. The assay principle involves DNA-coupled antibodies and dye labeled antibodies, which react with proteins in liquid phase within the microchannels. Both analytes are quantified using laser-induced fluorescence. Instrument and associated reagents are supplied by [employer] [place], [place], [place]. Patients with elevated AFP-L3% values (>=10%) [...] can potentially cause an anomalous result. The PluggedIn System has been formulated to minimize the [...] peripheral vein / Unknown Venipuncture / Unknown 12/11/2024 1:27 PM EDT 12/11/2024 1:49 PM EDT [facility] MICHELLE MCGOVERN 12/16/2024 4:46 PM EDT [facility] Received Date: us Ellis Romero MD LAB BLOOD ORDERABLES Final Re sult MICHELLE MCGOVERN [address] [place] [address] [address] Floor, [place] [address], [place] [phone] [employer]/[address] [address], [place] [phone] * (ABNORMAL) CBC Auto Differential (12/11/2024 1:27 PM EDT) WBC 8.7 3.8 - 10.8 10*3/uL 12/11/2024 1:57 PM EDT [facility] RBC 4.83 3.80 - 5.10 10*6/uL 12/11/2024 1:57 PM EDT [facility] Hemoglobin 14.2 11.7 - 15.5 g/dL 12/11/2024 1:57 PM EDT [facility] Hematocrit 45.0 35.0 - 45.0 % 12/11/2024 1:57 PM EDT [facility] MCV 93.2 80.0 - 100.0 fL 12/11/2024 1:57 PM EDT [facility] MCH 29.4 27.0 - 33.0 pg 12/11/2024 1:57 PM EDT [facility] MCHC 31.6(L) 32.0 - 36.0 g/dL 12/11/2024 1:57 PM EDT [facility] RDW 13.6 11.0 - 15.0 % 12/11/2024 1:57 PM EDT [facility] Platelets 137(L) 140 - 400 10*3/uL 12/11/2024 1:57 PM EDT [facility] MPV 12.5 7.5 - 12.5 fL 12/11/2024 1:57 PM EDT [facility] Neutrophil % 53.2 % 12/11/2024 1:57 PM EDT [facility] Immature Grans % 0.2 0.0 - 0.9 % 12/11/2024 1:57 PM EDT [facility] Lymphocyte % 37.9 % 12/11/2024 1:57 PM EDT [facility] Monocyte % 7.6 % 12/11/2024 1:57 PM EDT [facility] Eosinophil % 0.6 % 12/11/2024 1:57 PM EDT [facility] Basophil % 0.5 % 12/11/2024 1:57 PM EDT [facility] Neutrophil # 4.61 1.50 - 7.80 10*3/uL 12/11/2024 1:57 PM EDT [facility] Immature Grans # <0.03 <=0.03 10*3/uL 12/11/2024 1:57 PM EDT [facility] Lymphocyte # 3.30 0.85 - 3.90 10*3/uL 12/11/2024 1:57 PM EDT [facility] Monocyte # 0.70 0.20 - 0.95 10*3/uL 12/11/2024 1:57 PM EDT [facility] Eosinophil # 0.10 0.02 - 0.50 10*3/uL 12/11/2024 1:57 PM EDT [facility] Basophil # <0.03 0.00 - 0.20 10*3/uL 12/11/2024 1:57 PM EDT [facility] nRBC % 0.0 /100 WBCs 12/11/2024 1:57 PM EDT [facility] nRBC # <0.01 <0.01 10*3/uL 12/11/2024 1:57 PM EDT [facility] Blood Structure of peripheral vein / Unknown Venipuncture / Unknown 12/11/2024 1:27 PM EDT 12/11/2024 1:49 PM EDT us Ellis Romero MD LAB BLOOD ORDERABLES Final Re sult [facility] [address] [place] [address], [place] * Protime-INR (12/11/2024 1:27 PM EDT) PT 11.8 9.6 - 12.4 Seconds 12/11/2024 2:07 PM EDT [facility] INR 1.1 0.9 - 1.1 12/11/2024 2:07 PM EDT [facility] Comment:The optimal therapeu tic INR range for patients treated with Vitamin K antagonists (VKAS, e.g., Warfarin) is 2.0 to 3.5. Discuss the desired range with your doctor/care team. Blood Structure of peripheral vein / Unknown Venipuncture / Unknown 12/11/2024 1:27 PM EDT 12/11/2024 1:49 PM EDT us Ellis Romero MD LAB BLOOD ORDERABLES Final Re sult [facility] [address] [place] [address], [place] * (ABNORMAL) Comprehensive Metabolic Panel (12/11/2024 1:27 PM EDT) NA 139 135 - 145 mmol/L 12/11/2024 2:21 PM EDT [facility] K 4.1 3.5 - 5.3 mmol/L 12/11/2024 2:21 PM EDT [facility] Cl 103 97 - 110 mmol/L 12/11/2024 2:21 PM EDT [facility] CO2 26 22 - 32 mmol/L 12/11/2024 2:21 PM EDT [facility] Anion Gap 10 5 - 15 12/11/2024 2:21 PM EDT [facility] Glucose 184(H) 65 - 99 mg/dL 12/11/2024 2:21 PM EDT [facility] Creatinine 0.85 0.50 - 1.20 mg/dL 12/11/2024 2:21 PM EDT [facility] Calcium 10.1 8.6 - 10.5 mg/dL 12/11/2024 2:21 PM EDT [facility] Total Protein 8.1(H) 6.0 - 8.0 g/dL 12/11/2024 2:21 PM EDT [facility] Albumin 3.9 3.5 - 5.2 g/dL 12/11/2024 2:21 PM EDT [facility] Bilirubin, Total 0.6 0.2 - 1.2 mg/dL 12/11/2024 2:21 PM EDT [facility] Alkaline Phosphatase 123 35 - 129 U/L 12/11/2024 2:21 PM EDT [facility] AST 32 10 - 40 U/L 12/11/2024 2:21 PM EDT [facility] ALT 25 10 - 40 U/L 12/11/2024 2:21 PM EDT [facility] BUN 11 7 - 23 mg/dL 12/11/2024 2:21 PM EDT [facility] eGFR 77 >=60 mL/min/1. 73m2 12/11/2024 2:21 PM EDT [facility] Comment:The estimated glomer ular filtration rate (eGFR) is calculated using a new formula developed by the NKF-ASN task force to eliminate race-based correction factors. The new formula uses serum/plasma creatinine, age, and gender to determine eGFR. A value below 60mls/min might indicate kidney disease and will be flagged. For additional information, see Espino et al, Am J Kidney Dis. 2021;79(2):268- 288, A Unifying Approach for GFR estimation: Recommendations of the NKF-ASN Task Force on Reassessing the Inclusion of Race in Diagnosing Kidney Disease . Globulin, Total 4.2 2.1 - 4.2 g/dL 12/11/2024 2:21 PM EDT [facility] A/G Ratio 0.9(L) 1.5 - 3.0 12/11/2024 2:21 PM EDT [facility] Blood Structure of peripheral vein / Unknown Venipuncture / Unknown 12/11/2024 1:27 PM EDT 12/11/2024 1:50 PM EDT us Ellis Romero MD LAB BLOOD ORDERABLES Final Re sult [facility] [address] [place] [address], [place] * MRI Abdomen W WO Contrast (11/27/2024 3:00 PM EDT) Anatomical Region Laterality Modality Body, Abdomen Magnetic Resonan ce 11/27/2024 2:20 PM EDT Narrative 11/28/2024 9:[address] [facility] Accession Number: [id number] Patient Name: Alma Parker Date of : 1960 Date of Exam: 11-27-2024 Referring Physician: Ellis Romero [id number] [place] [id number] Exam: MR Abdomen (C-/C+) CPT 07684 Room Description: [facility] 3T MRI Abdomen W+W/O Contrast Liver disease, [...] intensity differences. LI-RADS 3. Cirrhotic liver. WSN: [id number] Ordering Physician: Ellis Romero MD Electronically Signed By: Pankaj Garcia MD Procedure Note Provider, [place] - 11/28/2024 [facility] Accession Number: [id number] Patient Name: Alma Parker Date of : 1960 Date of Exam: 11-27-2024 Referring Physician: Ellis Romero [address] [address] Exam: MR Abdomen (C-/C+) CPT 92361 Room Description: [facility] 3T MRI Abdomen W+W/O Contrast [...] intensity differences. LI-RADS 3. Cirrhotic liver. WSN: [id number] Ordering Physician: Ellis Romero MD Electronically Signed By: Pankaj Garcia MD us Ellis Ramos. Nick SMITH IM MRI PROCEDURES Final Resu lt * MRI Abdomen, Outside Result (11/27/2024) 11/27/2024 us Onbase Scan [facility] AMB EXTERNAL [...] with Hepatology/Gastroenterology PROCEDURE SUMMARY: - Target site: [place] liver - Image-guided heat-based ablation, Microwave ablation [...] Ablation applicator: 20 cm , 15 Gauge AR XT probe (wishkicker) by 65 Romero for 10 mins. ~Target [...] to obtain the completed interpretation. Workstation ID: [id number] Narrative 10/23/2024 5:47 PM EDT PROCEDURE: Image-guided heat-based ablation Procedural Personnel Attending physician(s): Larry Javier Fellow physician(s): None Resident physician(s): Keegan Salas Advanced practice provider(s): None Indication: Curative intent Pre-procedure diagnosis: Hepatocellular Carcinoma Post-procedure diagnosis: Same Additional clinical history: [place], HTN, COPD, HCV s/p treatment with clearance, and [facility] cirrhosis Complications: No immediate complications. Resulting Agency Comment [id number] Procedure Note Larry Del Rio MD - [...] with Hepatology/Gastroenterology PROCEDURE SUMMARY: - Target site: [place] liver - Image-guided heat-based ablation, Microwave ablation [...] Ablation applicator: 20 cm , 15 Gauge AR XT probe (wishkicker) by 65Watts for 10 mins. ~Target ~Target [...] possible to obtain thecompleted interpretation. Workstation ID: [id number] us Ellis Romero MD IMG CT PROCEDURES [...] to obtain the completed interpretation. Workstation ID: [id number] Up-to-date CT equipment and radiation dose reduction [...] or lytic osseous lesion. Resulting Agency Comment [id number] Procedure Note Medhat Rausch, DO - 10/04/2024 [...] possible to obtain thecompleted interpretation. Workstation ID: [id number] Up-to-date CT equipment and radiation dose reduction techniques wereemployed. CTDIvol: 13.5 mGy. DLP: 425 mGy-cm. Ellis Romero MD IMG CT PROCEDURES Final Resul t from Last 3 Months or Most Recently Relevant to Health Maintenance Insurance Advance Directives Documents on File Type Date Recorded Patient Master Brewer Expl anation Health Care Proxy 10/21/2024 10:05 AM * Presumed Full Code (Latest Code Status on File) Date Activated Date Inactivated Comments 10/21/2024 1:42 PM 10/22/2024 5:38 PM Care Teams Legislative Correspondent Relationship Specialty Start Date End Date Chris Clement [address] [place] [id number] PCP - General Internal Medicine 09/10/24
== END 2025-01-15 12:41 | disposition home or self-care (01) ==
LOC: HO.HOSX 12:40
PROVIDERS: Visit Provider Orthopaedic Surgery
DX: M17.0 Bilateral primary osteoarthritis of knee (principal); M79.7 Fibromyalgia; E66.01 Morbid (severe) obesity due to excess calories; F17.200 Nicotine dependence, unspecified, uncomplicated; Z68.42 Body mass index [BMI] 45.0-49.9, adult
CPT/HCPCS: 73562; 99212

== ENCOUNTER 2025-01-15 12:45 | Outpatient (AMB) | payer MEDICAID, SELFPAY ==
--- NOTE | 2025-01-15 12:49 | A.OFFVIS_ITS ---
Vital Signs 01/15/25 12:50 Height 4 ft 11 in Weight 232 lb BMI 46.9 Intake Visit Reasons: OV-Bilateral primary osteoarthritis of knee Intake Note: Alma is a 64 year old female who presents today for a follow up visit of her Bilateral Knee OA. Right Knee worse than left. Pain is limiting her AODL. At her last visit in 2022 we discussed weight loss. She met with bariatrics who reports that she was non compliant with meal plan (2023). Currently attending physical therapy. Is a current patient with rheumatology who reports that patient failed topical diclofenac, oral NSAIDs such as Celebrex and steroid injections. HX: Everyday Tobacco User BMI >40 Chirrhosis Allergies gabapentin Allergy (Intermediate, Verified 03/14/24 12:37) Swelling HPI HPI OV-Bilateral primary osteoarthritis of knee: Details: Alma is a 64 year old female who presents today for a follow up visit of her Bilateral Knee OA. Right Knee worse than left. Pain is limiting her AODL. At her last visit in 2022 we discussed weight loss. She met with bariatrics who reports that she was non compliant with meal plan (2023). Currently attending physical therapy. Is a current patient with rheumatology who reports that patient failed topical diclofenac, oral NSAIDs such as Celebrex and steroid injections. Last cortisone was at least a year ago. Her primary complaint is pain. She has difficulty walking. She has severe varus abnormality. Her right is more pa inful than her left. She feels her inability to ambulate even short distances makes it difficult for her to lose weight. HX: Everyday Tobacco User BMI >40 Chirrhosis [facility] Medical History (Updated 01/01/23 @ 10:51 by Nguyen Heart) Drug-seeking behavior Depression Anxiety Carpal tunnel syndrome Fibromyalgia Hepatitis C Sleep apnea Osteoarthritis Cirrhosis of liver Surgical History (Updated 12/10/24 @ 12:39 by Dot Finney [facility]) History of ablation of neoplasm of liver History of carpal tunnel release Abnormal colonoscopy Family History Mother Osteoporosis Father Rheumatoid arthritis Other History of lupus Social History Household Members: None Alcohol intake: current Alcohol intake frequency: does not drink Patient Tobacco Use Status: Current everyday Tobacco user Current occupational status: disabled Physical Exam Exam Exam: Obese but healthy-appearing woman. Her gait is antalgic with severe varus bilateral deformity and a varus thrust on the right. She has 10-120 degrees of motion on the right. Non correctable varus. Tenderness to palpation medial joint line. Skin clean dry and intact right lower extremity. 2+ dorsalis pedis pulse bilaterally Vital Signs: BMI result Body Mass Index 46.9 Results Reviewed Results Reviewed: I personally reviewed relevant radiographs. Severe varus pattern osteoarthritis bilateral knees Assessment & Plan Assessment & Plan (1) Bilateral primary osteoarthritis of knee: Code(s): M17.0 - Bilateral primary osteoarthritis of knee Category: Medical Plan: Severe varus abnormality. Ultimately this is only correctable with arthroplasty. She understands this. She wants to proceed forward with surgery but we have to modify her risk factors. Her current risk factors include high BMI smoking and what appears to be liver cirrhosis that is controlled with normal liver labs but ultrasound 2 years ago. She also has fibromyalgia which does not help anything. If she can get her BMI under 40 and quit smoking I think she would be a reasonable candidate. I discussed this with her. We will help her with this as much as we can. She needs to actively participate in her risk factor reduction. (2) Fibromyalgia: Code(s): M79.7 - Fibromyalgia Category: Medical Plan: (3) Obesity, morbid, BMI 40.0-49.9: Code(s): E66.01 - Morbid (severe) obesity due to excess calories Category: Medical Plan: Goal is to lose 30 lb prior to surgery (4) Smoking addiction: Code(s): F17.200 - Nicotine dependence, unspecified, uncomplicated Category: Social Hx Plan: Needs to quit smoking Orders: Orders XR knee LT 3V 01/15/25 M25.562 - Pain in left knee XR knee RT 3V 01/15/25 M25.561 - Pain in right knee Coding Level of Care Code Est Pt Level 4 (96534) Diagnoses Bilateral primary osteoarthritis of knee M17.0 Fibromyalgia M79.7 Obesity, morbid, BMI 40.0-49.9 E66.01 Smoking addiction F17.200
[2025-01-15 12:50] VITALS: BMI 46.9
== END 2025-01-15 13:59 | disposition home or self-care (01) ==
LOC: HO.HOS 12:45
PROVIDERS: PCP Internal Medicine; Visit Provider Orthopaedic Surgery
DX: M17.0 Bilateral primary osteoarthritis of knee (principal); M79.7 Fibromyalgia; E66.01 Morbid (severe) obesity due to excess calories; F17.200 Nicotine dependence, unspecified, uncomplicated
CPT/HCPCS: 99214

== ENCOUNTER → 2025-01-15 12:47 | Outpatient (BNV) | payer MEDICAID, SELFPAY | PROVIDERS: Visit Provider Radiology Diagnostic Radiology | DX: M17.0 Bilateral primary osteoarthritis of knee (principal); M25.462 Effusion, left knee; M21.162 Varus deformity, not elsewhere classified, left knee; M25.461 Effusion, right knee; M21.161 Varus deformity, not elsewhere classified, right knee | CPT/HCPCS: 73562 ==